=== PATIENT | male | born 1935 | race Caucasian/White ===

== ENCOUNTER 2020-05-09 10:52 | Inpatient (IN) | payer MEDICARE, OTHER, SELFPAY ==
[2020-05-09] MEDS ORDERED: Sodium Chloride 0.9% 10 ML Syringe FLUSH PRN (11:12)
[2020-05-09] MEDS ORDERED: Ondansetron 4 MG/2 ML SDV IVPUSH ONE (11:40)
[2020-05-09] MEDS ORDERED: Sodium Chloride 0.9% 1,000 ML IV STA (11:40)
--- NOTE | 2020-05-09 11:40 | EDM.PDOC ---
ED HPI GENERAL MEDICAL PROBLEM - General Chief Complaint: Gastrointestinal Problem Stated Complaint: [facility] Time Seen by Provider: 05/09/20 11:04 Source of Information: Reports: Patient, RN Notes Reviewed History Limitations: Reports: No Limitations - History of Present Illness INITIAL COMMENTS - FREE TEXT/NARRATIVE: Patient is an 84-year-old male presenting to the emergency department via [facility] with complaints of nausea and vomiting since Monday. He states that he is unable to keep his medications or liquids down. Denies abdominal pain other than when he is actively vomiting. He has had no diarrhea. His last bowel movement was on Monday and he states it was a normal bowel movement. He has been passing gas since that time but has had no further BMs. He does complain of shortness of breath but states that this has been fairly common for him for the last year. Denies any cough or chest pain. He is unsure if he is had a fever, but does state that he will intermittently feel hot. He lives alone and had no known sick contacts. On triage, patient was found to be hypoxic at 88 to 90% on room air. On he is currently on 2 L of oxygen by nasal cannula saturating 92-95%. Blood pressure is elevated at 190/109, respiratory rate 19, pulse 91, temperature 97.4. - Related Data Allergies Allergy/AdvReac Type Severity Reaction Status Date / Time atorvastatin [From Lipitor] Allergy Cannot Verified 05/09/20 11:10 Remember peanut Allergy Cannot Verified 05/09/20 11:10 Remember Penicillins Allergy Cannot Verified 05/09/20 11:10 Remember trazodone Allergy Cannot Verified 05/09/20 11:10 Remember Home Meds: Home Meds Amitriptyline [Elavil] 10 mg PO BEDTIME PRN 02/10/16 [History] Aspirin [Adult Low Dose Aspirin EC] 81 mg PO DAILY 02/10/16 [History] Cholecalciferol (Vitamin D3) [Vitamin D3] 2,000 units PO DAILY 02/10/16 [H istory] Fish Oil/[place]-3 Fatty Acids [Fish Oil 1,000 MG] 1,000 mg PO DAILY 02/10/16 [History] Gabapentin [Neurontin] 600 mg PO BID 02/10/16 [History] Losartan [Cozaar] 100 mg PO DAILY 02/10/16 [History] Polyethylene Glycol 3350 [MiraLAX] 17 gm PO DAILY packet 03/18/16 [Rx] Tamsulosin [Flomax] 0.4 mg PO DAILY #30 cap.er 03/18/16 [Rx] Albuterol [Take Home: Albuterol 18 GM, 1 INH Pack] 2 puff INH Q6HR PRN 05/09/20 [History] Ascorbic Acid [Vitamin C] 1,000 mg PO DAILY 05/09/20 [History] Aspirin [Aspirin EC] 81 mg PO DAILY 05/09/20 [History] Budesonide/Formoterol [Symbicort 160-4.5 MCG] 2 puff INH Q12HR 05/09/20 [History] Cetirizine HCl [Allergy Relief] 10 mg PO DAILY 05/09/20 [History] Gabapentin [Neurontin] 300 mg PO WITHLUNCH 05/09/20 [History] Ibuprofen 800 mg PO BID PRN 05/09/20 [History] Omeprazole 20 mg PO DAILY 05/09/20 [History] Verapamil [Verapamil ER] 120 mg PO DAILY 05/09/20 [History] bisacodyL [Bisacodyl] 10 mg PO BEDTIME PRN 05/09/20 [History] carvediloL [Carvedilol] 6.25 mg PO BID 05/09/20 [History] terbinafine HCL [Athlete's Foot] 1 applic TP BID 05/09/20 [History] Past Medical History HEENT History: Reports: Cataract Cardiovascular History: Reports: CAD, Heart Murmur, High Cholesterol, Hypertension, SOB on Exertion Other Cardiovascular History: mild Mitral steonosis/regurg. / moderate LA dilation / Increased PA pressure Respiratory History: Reports: SOB Other Respiratory History: Moderate Snoring Gastrointestinal History: Reports: Diverticulosis, GERD, Hiatal Hernia Genitourinary History: Reports: None Musculoskeletal History: Reports: Arthritis, Back Pain, Chronic, Other (See Below) Other Musculoskeletal History: weakness Neurological History: Reports: None Psychiatric History: Reports: None Endocrine/Metabolic History: Reports: Diabetes, Type II Hematologic History: Reports: Anemia, Other (See Below) Other Hematologic History: microcytic anemia Oncologic (Cancer) History: Reports: Other (See Below) Other Oncologic History: Patient reports hx of skin cancer. Other Dermatologic History: patient states Shingles hx. - Infectious Disease History Infectious Disease History: Reports: Chicken Pox, Measles, Mumps, Shingles - Past Surgical History Head Surgeries/Procedures: Reports: None HEENT Surgical History: Reports: Cataract Surgery Cardiovascular Surgical History: Reports: None Respiratory Surgical History: Reports: None GI Surgical History: Reports: Colonoscopy, Hernia, Inguinal, Hernia Repair/Other Male Surgical History: Reports: None Musculoskeletal Surgical History: Reports: None Other Musculoskeletal Surgeries/Procedures:: Neck surgery - pinched nerve release. Oncologic Surgical History: Reports: Other (See Below) Other Oncologic Surgeries/Procedures: Skin biopsy ([place]) Dermatological Surgical History: Reports: Skin Biopsy Social & Family History - Family History Family Medical History: No Pertinent Family History HEENT: Reports: Cataract Cardiac: Reports: None Respiratory: Reports: None GI: Reports: Chronic Constipation : Reports: None OBGYN: Reports: None Musculoskeletal: Reports: Arthritis Neurological: Reports: None Psychiatric: Reports: None Endocrine/Metabolic: Reports: Diabetes, Type I Hematologic: Reports: None Immunologic: Reports: None Dermatologic: Reports: None Oncologic: Reports: None - Tobacco Use Tobacco Use Status *Q: Never Tobacco User - Caffeine Use Caffeine Use: Reports: Coffee Other Caffeine Use: couple cups in the morning - Recreational Drug Use Recreational Drug Use: No - Living Situation & Occupation Living situation: Reports: Single Occupation: Retired ED ROS GENERAL - Review of Systems Review Of Systems: See Below Constitutional: Reports: Fever (Subjective), Weakness, Decreased Appetite HEENT: Reports: No Symptoms Respiratory: Reports: Shortness of Breath. Denies: Wheezing, Cough Cardiovascular: Reports: Dyspnea on Exertion. Denies: Chest Pain, Syncope Endocrine: Reports: No Symptoms GI/Abdominal: Reports: Nausea, Vomiting. Denies: Abdominal Pain, Diarrhea : Reports: No Symptoms ED EXAM, GI/ABD - Physical Exam Exam: See Below Exam Limited By: No Limitations General Appearance: Alert, WD/WN, No Apparent Distress Respiratory/Chest: No Respiratory Distress, Lungs Clear, Normal Breath Sounds, No Accessory Muscle Use, Chest Non-Tender Cardiovascular: Normal Peripheral Pulses, Regular Rate, Rhythm, No Edema, No Gallop, No JVD, No Murmur, No Rub GI/Abdominal Exam: Normal Bowel Sounds, Soft, Non-Tender, No Organomegaly, No Distention, No Abnormal Bruit, No Mass, Pelvis Stable Neurological: Alert, Oriented, CN II-XII Intact, Normal Cognition, Normal Gait, Normal Reflexes, No Motor/Sensory Deficits Psychiatric: Normal Affect, Normal Mood Skin Exam: Warm, Dry, Intact, Normal Color, No Rash Course - Vital Signs Last Recorded V/S: Last Vital Signs Temp 97.9 F 05/10/20 11:57 Pulse 63 05/10/20 11:57 Resp 16 05/10/20 11:57 BP 159/82 H 05/10/20 11:57 Pulse Ox 91 L 05/10/20 11:57 - Orders/Labs/Meds Orders: Medication Orders Acetaminophen (Tylenol) 650 mg PO Q4H PRN PRN Reason: Pain (Mild 1-3)/fever Amitriptyline HCl (Elavil) 10 mg PO BEDTIME PRN PRN Reason: Insomnia Last Admin: 05/09/20 20:38 Dose: 10 mg Documented by: ABIODUN Bisacodyl (Dulcolax) 10 mg PO BEDTIME PRN PRN Reason: Constipation Last Admin: 05/09/20 20:41 Dose: 10 mg Documented by: ABIODUN Carvedilol (Coreg) 6.25 mg PO BIDMEALS [facility] Last Admin: 05/10/20 06:09 Dose: 6.25 mg Documented by: Admin: 05/09/20 20:39 Dose: 6.25 mg Documented by: ABIODUN Cholecalciferol (Vitamin D3) 50 mcg PO DAILY [facility] Last Admin: 05/10/20 08:48 Dose: 50 mcg Documented by: STANLEY Enoxaparin Sodium (Lovenox) 90 mg SUBCUT Q12H [facility] Last Admin: 05/10/20 06:08 Dose: 90 mg Documented by: ABIODUN Gabapentin (Neurontin) 600 mg PO BID [facility] Last Admin: 05/10/20 08:46 Dose: 600 mg Documented by: Admin: 05/09/20 20:40 Dose: 600 mg Documented by: ABIODUN Gabapentin (Neurontin) 300 mg PO WITHLUNCH [facility] Last Admin: 05/10/20 13:39 Dose: 300 mg Documented by: STANLEY Loratadine (Claritin) 10 mg PO DAILY [facility] Last Admin: 05/10/20 08:48 Dose: 10 mg Documented by: STANLEY Losartan Potassium (Cozaar) 100 mg PO DAILY [facility] Last Admin: 05/10/20 08:48 Dose: 100 mg Documented by: STANLEY Mometasone Furoate/Formoterol Fumar (Dulera 200-5 Mcg) 2 puff IH Q12HR [facility] Last Admin: 05/10/20 08:21 Dose: 2 puff Documented by: Admin: 05/09/20 23:25 Dose: Not Given Documented by: ABIODUN Ondansetron HCl (Zofran) 4 mg IV Q4H PRN PRN Reason: Nausea/Vomiting Pantoprazole Sodium (Protonix) 40 mg PO ACBREAKFAST [facility] Last Admin: 05/10/20 06:09 Dose: 40 mg Documented by: ABIODUN Polyethylene Glycol (Miralax) 17 gm PO DAILY [facility] Last Admin: 05/10/20 08:44 Dose: 17 gm Documented by: STANLEY Sodium Chloride (Saline Flush) 10 ml FLUSH ASDIRECTED PRN PRN Reason: Keep Vein Open Last Admin: 05/09/20 11:15 Dose: 10 ml Documented by: SUMIT Tamsulosin HCl (Flomax) 0.4 mg PO DAILY [facility] Last Admin: 05/10/20 08:47 Dose: 0.4 mg Documented by: STANLEY Verapamil HCl (Verelan) 120 mg PO DAILY [facility] Last Admin: 05/10/20 08:47 Dose: 120 mg Documented by: STANLEY Labs: Laboratory Tests 05/09/20 05/09/20 05/09/20 Range/Units 11:00 11:00 11:00 WBC 9.55 H (4.23-9.07) K/mm3 RBC 5.33 (4.63-6.08) M/mm3 Hgb 15.7 D (13.7-17.5) gm/dl Hct 47.4 (40.1-51.0) % MCV 88.9 D (79.0-92.2) fl MCH 29.5 (25.7-32.2) pg MCHC 33.1 (32.2-35.5) g/dl RDW Std Deviation 43.8 (35.1-43.9) fL Plt Count 290 (163-337) K/mm3 MPV 8.6 L (9.4-12.3) fl Neut % (Auto) 89.7 H (34.0-67.9) % Lymph % (Auto) 6.4 L (21.8-53.1) % [place] % (Auto) 3.6 L (5.3-12.2) % Eos % (Auto) 0 L (0.8-7.0) Baso % (Auto) 0.0 L (0.1-1.2) % Neut # (Auto) 8.57 H (1.78-5.38) K/mm3 Lymph # (Auto) 0.61 L (1.32-3.57) K/mm3 [place] # (Auto) 0.34 (0.30-0.82) K/mm3 Eos # (Auto) 0.00 L (0.04-0.54) K/mm3 Baso # (Auto) 0.00 L (0.01-0.08) K/mm3 Manual Slide Review Abnormal smear PT (9.7-12.0) SECONDS INR D-Dimer, Quantitative 1.40 H (0.19-0.50) mg/L Sodium 136 (136-145) mEq/L Potassium 4.5 (3.5-5.1) mEq/L Chloride 99 (98-107) mEq/L Carbon Dioxide 28 (21-32) mEq/L Anion Gap 13.5 (5-15) BUN 22 H (7-18) mg/dL Creatinine 1.2 (0.7-1.3) mg/dL Est Cr Clr Drug Dosing 45.82 mL/min Estimated GFR (MDRD) 58 (>60) mL/min BUN/Creatinine Ratio 18.3 H (14-18) Glucose 193 H (83-115) mg/dL Calcium 9.4 (8.5-10.1) mg/dL Magnesium (1.8-2.4) mg/dl Total Bilirubin 0.8 (0.2-1.0) mg/dL AST 17 (15-37) U/L ALT 21 (16-63) U/L Alkaline Phosphatase 164 H (46-116) U/L Troponin I < 0.017 (0.00-0.056) ng/mL C-Reactive Protein 0.3 (<1.0) mg/dL NT-Pro-B Natriuret Pep (0-450) pg/mL Total Protein 7.6 (6.4-8.2) g/dl Albumin 3.8 (3.4-5.0) g/dl Globulin 3.8 gm/dL Albumin/Globulin Ratio 1.0 (1-2) Lipase (73-393) U/L Urine Color (Yellow) Urine Appearance (Clear) Urine pH (5.0-8.0) Ur Specific [place] (1.005-1.030) Urine Protein (Negative) Urine Glucose (UA) (Negative) Urine Ketones (Negative) Urine Occult Blood (Negative) Urine Nitrite (Negative) Urine Bilirubin (Negative) Urine Urobilinogen (0.2-1.0) Ur Leukocyte Esterase (Negative) U Hyaline Cast (Auto) (0-5) /lpf Urine RBC (0-5) /hpf Urine WBC (0-5) /hpf Ur Squamous Epith Cells (0-5) /hpf Amorphous Sediment (NOT SEEN) /hpf Urine Bacteria (FEW) /hpf Urine Mucus (FEW) /hpf Influenza Type A RNA (NEGATIVE) Influenza Type B RNA (NEGATIVE) SARS-CoV-2 RNA (DRISS) (NEGATIVE) 05/09/20 05/09/20 05/09/20 Range/Units 11:00 11:00 11:00 WBC (4.23-9.07) K/mm3 RBC (4.63-6.08) M/mm3 Hgb (13.7-17.5) gm/dl Hct (40.1-51.0) % MCV (79.0-92.2) fl MCH (25.7-32.2) pg MCHC (32.2-35.5) g/dl RDW Std Deviation (35.1-43.9) fL Plt Count (163-337) K/mm3 MPV (9.4-12.3) fl Neut % (Auto) (34.0-67.9) % Lymph % (Auto) (21.8-53.1) % [place] % (Auto) (5.3-12.2) % Eos % (Auto) (0.8-7.0) Baso % (Auto) (0.1-1.2) % Neut # (Auto) (1.78-5.38) K/mm3 Lymph # (Auto) (1.32-3.57) K/mm3 [place] # (Auto) (0.30-0.82) K/mm3 Eos # (Auto) (0.04-0.54) K/mm3 Baso # (Auto) (0.01-0.08) K/mm3 Manual Slide Review PT 11.9 (9.7-12.0) SECONDS INR 1.11 D-Dimer, Quantitative (0.19-0.50) mg/L Sodium (136-145) mEq/L Potassium (3.5-5.1) mEq/L Chloride (98-107) mEq/L Carbon Dioxide (21-32) mEq/L Anion Gap (5-15) BUN (7-18) mg/dL Creatinine (0.7-1.3) mg/dL Est Cr Clr Drug Dosing mL/min Estimated GFR (MDRD) (>60) mL/min BUN/Creatinine Ratio (14-18) Glucose (83-115) mg/dL Calcium (8.5-10.1) mg/dL Magnesium 2.0 (1.8-2.4) mg/dl Total Bilirubin (0.2-1.0) mg/dL AST (15-37) U/L ALT (16-63) U/L Alkaline Phosphatase (46-116) U/L Troponin I (0.00-0.056) ng/mL C-Reactive Protein (<1.0) mg/dL NT-Pro-B Natriuret Pep 596 H (0-450) pg/mL Total Protein (6.4-8.2) g/dl Albumin (3.4-5.0) g/dl Globulin gm/dL Albumin/Globulin Ratio (1-2) Lipase 48 L (73-393) U/L Urine Color (Yellow) Urine Appearance (Clear) Urine pH (5.0-8.0) Ur Specific [place] (1.005-1.030) Urine Protein (Negative) Urine Glucose (UA) (Negative) Urine Ketones (Negative) Urine Occult Blood (Negative) Urine Nitrite (Negative) Urine Bilirubin (Negative) Urine Urobilinogen (0.2-1.0) Ur Leukocyte Esterase (Negative) U Hyaline Cast (Auto) (0-5) /lpf Urine RBC (0-5) /hpf Urine WBC (0-5) /hpf Ur Squamous Epith Cells (0-5) /hpf Amorphous Sediment (NOT SEEN) /hpf Urine Bacteria (FEW) /hpf Urine Mucus (FEW) /hpf Influenza Type A RNA (NEGATIVE) Influenza Type B RNA (NEGATIVE) SARS-CoV-2 RNA (DRISS) (NEGATIVE) 05/09/20 05/09/20 Range/Units 12:15 12:40 WBC (4.23-9.07) K/mm3 RBC (4.63-6.08) M/mm3 Hgb (13.7-17.5) gm/dl Hct (40.1-51.0) % MCV (79.0-92.2) fl MCH (25.7-32.2) pg MCHC (32.2-35.5) g/dl RDW Std Deviation (35.1-43.9) fL Plt Count (163-337) K/mm3 MPV (9.4-12.3) fl Neut % (Auto) (34.0-67.9) % Lymph % (Auto) (21.8-53.1) % [place] % (Auto) (5.3-12.2) % Eos % (Auto) (0.8-7.0) Baso % (Auto) (0.1-1.2) % Neut # (Auto) (1.78-5.38) K/mm3 Lymph # (Auto) (1.32-3.57) K/mm3 [place] # (Auto) (0.30-0.82) K/mm3 Eos # (Auto) (0.04-0.54) K/mm3 Baso # (Auto) (0.01-0.08) K/mm3 Manual Slide Review PT (9.7-12.0) SECONDS INR D-Dimer, Quantitative (0.19-0.50) mg/L Sodium (136-145) mEq/L Potassium (3.5-5.1) mEq/L Chloride (98-107) mEq/L Carbon Dioxide (21-32) mEq/L Anion Gap (5-15) BUN (7-18) mg/dL Creatinine (0.7-1.3) mg/dL Est Cr Clr Drug Dosing mL/min Estimated GFR (MDRD) (>60) mL/min BUN/Creatinine Ratio (14-18) Glucose (83-115) mg/dL Calcium (8.5-10.1) mg/dL Magnesium (1.8-2.4) mg/dl Total Bilirubin (0.2-1.0) mg/dL AST (15-37) U/L ALT (16-63) U/L Alkaline Phosphatase (46-116) U/L Troponin I (0.00-0.056) ng/mL C-Reactive Protein (<1.0) mg/dL NT-Pro-B Natriuret Pep (0-450) pg/mL Total Protein (6.4-8.2) g/dl Albumin (3.4-5.0) g/dl Globulin gm/dL Albumin/Globulin Ratio (1-2) Lipase (73-393) U/L Urine Color Yellow (Yellow) Urine Appearance Clear (Clear) Urine pH 7.0 (5.0-8.0) Ur Specific [place] 1.025 (1.005-1.030) Urine Protein Trace H (Negative) Urine Glucose (UA) Negative (Negative) Urine Ketones 1+ H (Negative) Urine Occult Blood Negative (Negative) Urine Nitrite Negative (Negative) Urine Bilirubin Negative (Negative) Urine Urobilinogen 1.0 (0.2-1.0) Ur Leukocyte Esterase Negative (Negative) U Hyaline Cast (Auto) 0-5 (0-5) /lpf Urine RBC 0-5 (0-5) /hpf Urine WBC 0-5 (0-5) /hpf Ur Squamous Epith Cells 0-5 (0-5) /hpf Amorphous Sediment Few H (NOT SEEN) /hpf Urine Bacteria Few (FEW) /hpf Urine Mucus Rare (FEW) /hpf Influenza Type A RNA Negative (NEGATIVE) Influenza Type B RNA Negative (NEGATIVE) SARS-CoV-2 RNA (DRISS) Negative (NEGATIVE) Meds: Medications Generic Name Dose Route Start Last Admin Trade Name Freq PRN Reason Stop Dose Admin Acetaminophen 650 mg 05/09/20 19:50 Tylenol PO Q4H PRN Pain (Mild 1-3)/fever Amitriptyline HCl 10 mg 05/09/20 19:54 05/09/20 20:38 Elavil PO 10 mg BEDTIME PRN Administration Insomnia Bisacodyl 10 mg 05/09/20 19:54 05/09/20 20:41 Dulcolax PO 10 mg BEDTIME PRN Administration Constipation Carvedilol 6.25 mg 05/09/20 21:00 05/10/20 06:09 Coreg PO 6.25 mg BIDMEALS [facility] Administration Cholecalciferol 50 mcg 05/10/20 09:00 05/10/20 08:48 Vitamin D3 PO 50 mcg DAILY [facility] Administration Enoxaparin Sodium 90 mg 05/10/20 06:00 05/10/20 06:08 Lovenox SUBCUT 90 mg Q12H [facility] Administration Gabapentin 600 mg 05/09/20 21:00 05/10/20 08:46 Neurontin PO 600 mg BID [facility] Administration Gabapentin 300 mg 05/10/20 11:00 05/10/20 13:39 Neurontin PO 300 mg WITHLUNCH [facility] Administration Loratadine 10 mg 05/10/20 09:00 05/10/20 08:48 Claritin PO 10 mg DAILY [facility] Administration Losartan Potassium 100 mg 05/10/20 09:00 05/10/20 08:48 Cozaar PO 100 mg DAILY [facility] Administration Mometasone Furoate/Formoterol Fumar 2 puff 05/09/20 21:00 05/10/20 08:21 Dulera 200-5 Mcg IH 2 puff Q12HR [facility] Administration Ondansetron HCl 4 mg 05/09/20 19:50 Zofran IV Q4H PRN Nausea/Vomiting Pantoprazole Sodium 40 mg 05/10/20 06:00 05/10/20 06:09 Protonix PO 40 mg ACBREAKFAST [facility] Administration Polyethylene Glycol 17 gm 05/10/20 09:00 05/10/20 08:44 Miralax PO 17 gm DAILY [facility] Administration Sodium Chloride 10 ml 05/09/20 11:12 05/09/20 11:15 Saline Flush FLUSH 10 ml ASDIRECTED PRN Administration Keep Vein Open Tamsulosin HCl 0.4 mg 05/10/20 09:00 05/10/20 08:47 Flomax PO 0.4 mg DAILY [facility] Administration Verapamil HCl 120 mg 05/10/20 09:00 05/10/20 08:47 Verelan PO 120 mg DAILY [facility] Administration Discontinued Medications Generic Name Dose Route Start Last Admin Trade Name Freq PRN Reason Stop Dose Admin Enoxaparin Sodium 80 mg 05/09/20 14:59 05/09/20 15:12 Lovenox SUBCUT 05/09/20 15:00 80 mg ONETIME ONE Administration Sodium Chloride 1,000 mls @ 100 mls/hr 05/09/20 11:40 05/09/20 13:26 Normal Saline IV 05/09/20 21:39 100 mls/hr NOW STA Infusion Sodium Chloride 100 mls @ 60 mls/hr 05/09/20 12:15 05/09/20 12:43 Normal Saline IV 60 mls/hr ASDIRECTED [facility] Administration Iopamidol 100 ml 05/09/20 12:14 05/09/20 12:43 Isovue-370 (76%) IVPUSH 05/09/20 12:15 100 ml ONETIME ONE Administration Metoclopramide HCl 7.5 mg 05/09/20 12:26 05/09/20 12:37 Reglan IVPUSH 05/09/20 12:27 7.5 mg ONETIME ONE Administration Ondansetron HCl 4 mg 05/09/20 11:40 05/09/20 11:47 Zofran IVPUSH 05/09/20 11:41 4 mg ONETIME ONE Administration Sodium Chloride 10 ml 05/09/20 12:14 05/09/20 12:43 Saline Flush FLUSH 05/09/20 12:15 10 ml ONETIME ONE Administration - Re-Assessments/Exams Free Text/Narrative Re-Assessment/Exam: Patient is an 84 year old male presenting to the ER with c/o nausea and vomiting since Monday. He has been unable to keep liquids or his medications down. He feels like he has had intermittent fevers but has not checked a temp at home. He was found to be mildly hypoxia on triage. He is currently on 2L/NC saturating in the low 90s. He denies cough, but states that he has been SOB. Denies abdominal pain. Exam was grossly unremarkable. I have ordered blood work, EKG, chest xray, urinalysis, and COVID/influenza test. I will start IV fluids of NS at 150 ml/hr and give Zofran 4 mg IV for nausea. 05/09/20 1200 Hematology was significant for WBC minimally elevated at 9.55, D-dimer elevated at 1.4, BUN 22, BNP 596, CRP is normal at 0.3, troponin is undetectable. Urinalysis and Covid and influenza testing are pending. Given that patient is hypoxic and his D-dimer is notably elevated. Have ordered a CT angiogram of the chest. 05/09/20 12:30 Patient continues to complain of nausea. Have ordered Reglan 7.5 mg IV. 05/09/20 14:16 CT angiogram of the chest showed acute nonocclusive pulmonary embolus with in the periphery of the upper lobe of the left main pulmonary artery. There is no evidence of right-sided heart strain. Chronic changes within the lung parenchyma with patchy groundglass most likely representing mild pulmonary edema/CHF. Moderate grade cardiomegaly and coronary atherosclerosis with mild calcifications of the aortic valve leaflets. Patient's nausea has improved, however he does still feel slightly nauseous. Oxygen has been 92 to 94% on 2 L by nasal cannula. Hypoxia is likely related to the pulmonary emboli, however nausea and vomiting is generally not involved. I have ordered an abdomen x-ray flat and upright. 05/09/20 15:00 Abdomen flat and upright x-ray reviewed by myself and Dr. Marion with no acute abnormalities visualized. Called and spoke with Dr. Rutherford, hospitalist. He is excepted the patient for admission. Requested Lovenox 1 mg/kg to be administered. Departure - Departure Time of Disposition: 15:00 Disposition: Admitted As Inpatient 66 Condition: Good Clinical Impression: Vomiting, Hypoxia Pulmonary embolism Qualifiers: Pulmonary embolism type: unspecified Chronicity: acute Acute cor pulmonale presence: without acute cor pulmonale Qualified Code(s): I26.99 - Other pulmonary embolism without acute cor pulmonale - Discharge Information Sepsis Event Note (ED) - Evaluation Sepsis Screening Result: No Definite Risk
[2020-05-09] MEDS ORDERED: Sodium Chloride 0.9% 10 ML Syringe FLUSH ONE (12:14)
[2020-05-09] MEDS ORDERED: Iopamidol 755 Mg/ML 100 ML Bottle IVPUSH ONE (12:14)
[2020-05-09] MEDS ORDERED: Sodium Chloride 0.9% 100 ML IV SCH (12:15)
[2020-05-09] MEDS ORDERED: Metoclopramide 10 MG/2 ML SDV IVPUSH ONE (12:26)
[2020-05-09 13:54] LABS: CORONAVIRUS COVID-19 NAA NEGATIVE (NEGATIVE)
[2020-05-09] MEDS ORDERED: Enoxaparin 80 MG/0.8 ML Syringe SUBCUT ONE (14:59)
--- NOTE | 2020-05-09 16:37 | PCM.HP.2 ---
H&P History of Present Illness - General Date of Service: 05/09/20 Admit Problem/Dx: Admission Diagnosis/Problem Admission Diagnosis/Problem Pulmonary embolism - History of Present Illness Initial Comments - Free Text/Narative: 84-year-old male with history of COPD, hypertension, BPH, chronic back pain, presents to the emergency department with worsening nausea and vomiting. Patient states he has been having difficulty with nausea and vomiting for several months but over the last 3 days has been unable to keep anything down. Patient's last bowel movement was 3 days ago. Today he was unable to keep his medications down so he came to the emergency department. Patient lives at home and he has become more fatigued. He also states he has chronic shortness of breath. No known exposures to COVID-19. Oxygen saturations were 88 to 90% and he was placed on 2 L of O2 via nasal cannula to keep his oxygen saturations between 90 to 95%. His initial vitals showed a blood pressure of 190/109 with heart rate of 91, respiratory rate of 19 and temperature 97.4. In the emergent department he was found to have a D-dimer of 1.4. CTA of the chest showed acute nonocclusive pulmonary embolus within the periphery of the left lobe of the left main pulmonary artery. There is no evidence of right-sided heart strain. Chronic changes within the lung parenchyma with patchy groundglass most likely representing mild pulmonary edema/CHF. Moderate grade cardiomegaly and coronary arthrosclerosis with mild calcifications on the aortic valve leaflets. Patient did require both Zofran and Reglan to improve his nausea. Patient denies any recent immobilization, travel, cancer (he did have colon cancer 5 years ago). An abdominal flat and upright x-ray was negative for any acute abnormalities. - Related Data Allergies/Adverse Reactions: Allergies Allergy/AdvReac Type Severity Reaction Status Date / Time atorvastatin [From Lipitor] Allergy Cannot Verified 05/09/20 11:10 Remember peanut Allergy Cannot Verified 05/09/20 11:10 Remember Penicillins Allergy Cannot Verified 05/09/20 11:10 Remember trazodone Allergy Cannot Verified 05/09/20 11:10 Remember Home Medications: Home Meds Amitriptyline [Elavil] 10 mg PO BEDTIME PRN 02/10/16 [History] Aspirin [Adult Low Dose Aspirin EC] 81 mg PO DAILY 02/10/16 [History] Cholecalciferol (Vitamin D3) [Vitamin D3] 2,000 units PO DAILY 02/10/16 [History] Fish Oil/Harper-3 Fatty Acids [Fish Oil 1,000 MG] 1,000 mg PO DAILY 02/10/16 [History] Gabapentin [Neurontin] 600 mg PO BID 02/10/16 [History] Losartan [Cozaar] 100 mg PO DAILY 02/10/16 [History] Polyethylene Glycol 3350 [MiraLAX] 17 gm PO DAILY packet 03/18/16 [Rx] Tamsulosin [Flomax] 0.4 mg PO DAILY #30 cap.er 03/18/16 [Rx] Albuterol [Take Home: Albuterol 18 GM, 1 INH Pack] 2 puff INH Q6HR PRN 05/09/20 [History] Ascorbic Acid [Vitamin C] 1,000 mg PO DAILY 05/09/20 [History] Aspirin [Aspirin EC] 81 mg PO DAILY 05/09/20 [History] Budesonide/Formoterol [Symbicort 160-4.5 MCG] 2 puff INH Q12HR 05/09/20 [History] Cetirizine HCl [Allergy Relief] 10 mg PO DAILY 05/09/20 [History] Gabapentin [Neurontin] 300 mg PO WITHLUNCH 05/09/20 [History] Ibuprofen 800 mg PO BID PRN 05/09/20 [History] Omeprazole 20 mg PO DAILY 05/09/20 [History] Verapamil [Verapamil ER] 120 mg PO DAILY 05/09/20 [History] bisacodyL [Bisacodyl] 10 mg PO BEDTIME PRN 05/09/20 [History] carvediloL [Carvedilol] 6.25 mg PO BID 05/09/20 [History] terbinafine HCL [Athlete's Foot] 1 applic TP BID 05/09/20 [History] Past Medical History HEENT History: Reports: Cataract Cardiovascular History: Reports: CAD, Heart Murmur, High Cholesterol, Hypertension, SOB on Exertion Other Cardiovascular History: mild Mitral steonosis/regurg. / moderate LA dilation / Increased PA pressure Respiratory History: Reports: SOB Other Respiratory History: Moderate Snoring Gastrointestinal History: Reports: Diverticulosis, GERD, Hiatal Hernia Genitourinary History: Reports: None Musculoskeletal History: Reports: Arthritis, Back Pain, Chronic, Other (See Below) Other Musculoskeletal History: weakness Neurological History: Reports: None Psychiatric History: Reports: None Endocrine/Metabolic History: Reports: Diabetes, Type II Hematologic History: Reports: Anemia, Other (See Below) Other Hematologic History: microcytic anemia Oncologic (Cancer) History: Reports: Other (See Below) Other Oncologic History: Patient reports hx of skin cancer. Other Dermatologic History: patient states Shingles hx. - Infectious Disease History Infectious Disease History: Reports: Chicken Pox, Measles, Mumps, Shingles - Past Surgical History Head Surgeries/Procedures: Reports: None HEENT Surgical History: Reports: Cataract Surgery Cardiovascular Surgical History: Reports: None Respiratory Surgical History: Reports: None GI Surgical History: Reports: Colonoscopy, Hernia, Inguinal, Hernia Repair/Other Male Surgical History: Reports: None Musculoskeletal Surgical History: Reports: None Other Musculoskeletal Surgeries/Procedures:: Neck surgery - pinched nerve release. Oncologic Surgical History: Reports: Other (See Below) Other Oncologic Surgeries/Procedures: Skin biopsy ([facility]) Dermatological Surgical History: Reports: Skin Biopsy Social & Family History - Family History Family Medical History: No Pertinent Family History HEENT: Reports: Cataract Cardiac: Reports: None Respiratory: Reports: None GI: Reports: Chronic Constipation : Reports: None OBGYN: Reports: None Musculoskeletal: Reports: Arthritis Neurological: Reports: None Psychiatric: Reports: None Endocrine/Metabolic: Reports: Diabetes, Type I Hematologic: Reports: None Immunologic: Reports: None Dermatologic: Reports: None Oncologic: Reports: None - Tobacco Use Tobacco Use Status *Q: Former Tobacco User Years of Tobacco use: 3 Packs/Tins Daily: 1 Used Tobacco, but Quit: Yes Month/Year Tobacco Last Used: 60 years ago Tobacco Use Comment: smokeless tobacco for quite a few years after quitting smoking. - Caffeine Use Caffeine Use: Reports: Coffee Other Caffeine Use: couple cups in the morning - Recreational Drug Use Recreational Drug Use: No - Living Situation & Occupation Living situation: Reports: Single Occupation: Retired H&P Review of Systems - Review of Systems: Review Of Systems: Comprehensive ROS is negative, except as noted in HPI. Exam - Exam Exam: See Below - Vital Signs Vital Signs: Last Vital Signs Temp 98.2 F 05/09/20 16:21 Pulse 93 05/09/20 16:21 Resp 16 05/09/20 16:21 BP 126/79 05/09/20 16:21 Pulse Ox 94 L 05/09/20 16:21 Weight: 198 lb 8 oz - Exam Quality Assessment: Supplemental Oxygen General: Alert, Oriented, 4 HEENT: Conjunctiva Clear, Mucosa Moist & [place], Normal Nasal Septum. No: Hearing Intact (Hard of hearing) Neck: Supple, Trachea Midline, 2 Lungs: Decreased Breath Sounds, Rales (Minimal bibasilar) Cardiovascular: Regular Rate, Regular Rhythm, Systolic Murmur (Best heard fifth intercostal space) GI/Abdominal Exam: Normal Bowel Sounds, Soft, Non-Tender, No Organomegaly, No Distention, No Abnormal Bruit, No Mass Extremities: Normal Inspection, Normal Range of Motion, Non-Tender, Normal Capillary Refill, Pedal Edema (Stent trace edema of the lower extremities up to knee-high) Peripheral Pulses: 1+: Posterior Tibial (L), Posterior Tibial (R), Dorsalis Pedis (L), Dorsalis Pedis (R) Skin: Warm, Dry, Intact Neuro Extensive - Mental Status: Alert, Oriented x3, Normal Mood/Affect, Normal Cognition, Memory Intact Psychiatric: Alert, Normal Affect, Normal Mood - Patient Data Lab Results Last 24 hrs: Laboratory Results - last 24 hr 05/09/20 05/09/20 05/09/20 Range/Units 11:00 11:00 11:00 WBC 9.55 H (4.23-9.07) K/mm3 RBC 5.33 (4.63-6.08) M/mm3 Hgb 15.7 D (13.7-17.5) gm/dl Hct 47.4 (40.1-51.0) % MCV 88.9 D (79.0-92.2) fl MCH 29.5 (25.7-32.2) pg MCHC 33.1 (32.2-35.5) g/dl RDW Std Deviation 43.8 (35.1-43.9) fL Plt Count 290 (163-337) K/mm3 MPV 8.6 L (9.4-12.3) fl Neut % (Auto) 89.7 H (34.0-67.9) % Lymph % (Auto) 6.4 L (21.8-53.1) % Wheeler % (Auto) 3.6 L (5.3-12.2) % Eos % (Auto) 0 L (0.8-7.0) Baso % (Auto) 0.0 L (0.1-1.2) % Neut # (Auto) 8.57 H (1.78-5.38) K/mm3 Lymph # (Auto) 0.61 L (1.32-3.57) K/mm3 Wheeler # (Auto) 0.34 (0.30-0.82) K/mm3 Eos # (Auto) 0.00 L (0.04-0.54) K/mm3 Baso # (Auto) 0.00 L (0.01-0.08) K/mm3 Manual Slide Review Abnormal smear PT (9.7-12.0) SECONDS INR D-Dimer, Quantitative 1.40 H (0.19-0.50) mg/L Sodium 136 (136-145) mEq/L Potassium 4.5 (3.5-5.1) mEq/L Chloride 99 (98-107) mEq/L Carbon Dioxide 28 (21-32) mEq/L Anion Gap 13.5 (5-15) BUN 22 H (7-18) mg/dL Creatinine 1.2 (0.7-1.3) mg/dL Est Cr Clr Drug Dosing 45.82 mL/min Estimated GFR (MDRD) 58 (>60) mL/min BUN/Creatinine Ratio 18.3 H (14-18) Glucose 193 H (83-115) mg/dL Calcium 9.4 (8.5-10.1) mg/dL Magnesium (1.8-2.4) mg/dl Total Bilirubin 0.8 (0.2-1.0) mg/dL AST 17 (15-37) U/L ALT 21 (16-63) U/L Alkaline Phosphatase 164 H (46-116) U/L Troponin I < 0.017 (0.00-0.056) ng/mL C-Reactive Protein 0.3 (<1.0) mg/dL NT-Pro-B Natriuret Pep (0-450) pg/mL Total Protein 7.6 (6.4-8.2) g/dl Albumin 3.8 (3.4-5.0) g/dl Globulin 3.8 gm/dL Albumin/Globulin Ratio 1.0 (1-2) Lipase (73-393) U/L Urine Color (Yellow) Urine Appearance (Clear) Urine pH (5.0-8.0) Ur Specific Lutz (1.005-1.030) Urine Protein (Negative) Urine Glucose (UA) (Negative) Urine Ketones (Negative) Urine Occult Blood (Negative) Urine Nitrite (Negative) Urine Bilirubin (Negative) Urine Urobilinogen (0.2-1.0) Ur Leukocyte Esterase (Negative) U Hyaline Cast (Auto) (0-5) /lpf Urine RBC (0-5) /hpf Urine WBC (0-5) /hpf Ur Squamous Epith Cells (0-5) /hpf Amorphous Sediment (NOT SEEN) /hpf Urine Bacteria (FEW) /hpf Urine Mucus (FEW) /hpf Influenza Type A RNA (NEGATIVE) Influenza Type B RNA (NEGATIVE) SARS-CoV-2 RNA (DRISS) (NEGATIVE) 05/09/20 05/09/20 05/09/20 Range/Units 11:00 11:00 11:00 WBC (4.23-9.07) K/mm3 RBC (4.63-6.08) M/mm3 Hgb (13.7-17.5) gm/dl Hct (40.1-51.0) % MCV (79.0-92.2) fl MCH (25.7-32.2) pg MCHC (32.2-35.5) g/dl RDW Std Deviation (35.1-43.9) fL Plt Count (163-337) K/mm3 MPV (9.4-12.3) fl Neut % (Auto) (34.0-67.9) % Lymph % (Auto) (21.8-53.1) % Wheeler % (Auto) (5.3-12.2) % Eos % (Auto) (0.8-7.0) Baso % (Auto) (0.1-1.2) % Neut # (Auto) (1.78-5.38) K/mm3 Lymph # (Auto) (1.32-3.57) K/mm3 Wheeler # (Auto) (0.30-0.82) K/mm3 Eos # (Auto) (0.04-0.54) K/mm3 Baso # (Auto) (0.01-0.08) K/mm3 Manual Slide Review PT 11.9 (9.7-12.0) SECONDS INR 1.11 D-Dimer, Quantitative (0.19-0.50) mg/L Sodium (136-145) mEq/L Potassium (3.5-5.1) mEq/L Chloride (98-107) mEq/L Carbon Dioxide (21-32) mEq/L Anion Gap (5-15) BUN (7-18) mg/dL Creatinine (0.7-1.3) mg/dL Est Cr Clr Drug Dosing mL/min Estimated GFR (MDRD) (>60) mL/min BUN/Creatinine Ratio (14-18) Glucose (83-115) mg/dL Calcium (8.5-10.1) mg/dL Magnesium 2.0 (1.8-2.4) mg/dl Total Bilirubin (0.2-1.0) mg/dL AST (15-37) U/L ALT (16-63) U/L Alkaline Phosphatase (46-116) U/L Troponin I (0.00-0.056) ng/mL C-Reactive Protein (<1.0) mg/dL NT-Pro-B Natriuret Pep 596 H (0-450) pg/mL Total Protein (6.4-8.2) g/dl Albumin (3.4-5.0) g/dl Globulin gm/dL Albumin/Globulin Ratio (1-2) Lipase 48 L (73-393) U/L Urine Color (Yellow) Urine Appearance (Clear) Urine pH (5.0-8.0) Ur Specific Lutz (1.005-1.030) Urine Protein (Negative) Urine Glucose (UA) (Negative) Urine Ketones (Negative) Urine Occult Blood (Negative) Urine Nitrite (Negative) Urine Bilirubin (Negative) Urine Urobilinogen (0.2-1.0) Ur Leukocyte Esterase (Negative) U Hyaline Cast (Auto) (0-5) /lpf Urine RBC (0-5) /hpf Urine WBC (0-5) /hpf Ur Squamous Epith Cells (0-5) /hpf Amorphous Sediment (NOT SEEN) /hpf Urine Bacteria (FEW) /hpf Urine Mucus (FEW) /hpf Influenza Type A RNA (NEGATIVE) Influenza Type B RNA (NEGATIVE) SARS-CoV-2 RNA (DRISS) (NEGATIVE) 05/09/20 05/09/20 Range/Units 12:15 12:40 WBC (4.23-9.07) K/mm3 RBC (4.63-6.08) M/mm3 Hgb (13.7-17.5) gm/dl Hct (40.1-51.0) % MCV (79.0-92.2) fl MCH (25.7-32.2) pg MCHC (32.2-35.5) g/dl RDW Std Deviation (35.1-43.9) fL Plt Count (163-337) K/mm3 MPV (9.4-12.3) fl Neut % (Auto) (34.0-67.9) % Lymph % (Auto) (21.8-53.1) % Wheeler % (Auto) (5.3-12.2) % Eos % (Auto) (0.8-7.0) Baso % (Auto) (0.1-1.2) % Neut # (Auto) (1.78-5.38) K/mm3 Lymph # (Auto) (1.32-3.57) K/mm3 Wheeler # (Auto) (0.30-0.82) K/mm3 Eos # (Auto) (0.04-0.54) K/mm3 Baso # (Auto) (0.01-0.08) K/mm3 Manual Slide Review PT (9.7-12.0) SECONDS INR D-Dimer, Quantitative (0.19-0.50) mg/L Sodium (136-145) mEq/L Potassium (3.5-5.1) mEq/L Chloride (98-107) mEq/L Carbon Dioxide (21-32) mEq/L Anion Gap (5-15) BUN (7-18) mg/dL Creatinine (0.7-1.3) mg/dL Est Cr Clr Drug Dosing mL/min Estimated GFR (MDRD) (>60) mL/min BUN/Creatinine Ratio (14-18) Glucose (83-115) mg/dL Calcium (8.5-10.1) mg/dL Magnesium (1.8-2.4) mg/dl Total Bilirubin (0.2-1.0) mg/dL AST (15-37) U/L ALT (16-63) U/L Alkaline Phosphatase (46-116) U/L Troponin I (0.00-0.056) ng/mL C-Reactive Protein (<1.0) mg/dL NT-Pro-B Natriuret Pep (0-450) pg/mL Total Protein (6.4-8.2) g/dl Albumin (3.4-5.0) g/dl Globulin gm/dL Albumin/Globulin Ratio (1-2) Lipase (73-393) U/L Urine Color Yellow (Yellow) Urine Appearance Clear (Clear) Urine pH 7.0 (5.0-8.0) Ur Specific Lutz 1.025 (1.005-1.030) Urine Protein Trace H (Negative) Urine Glucose (UA) Negative (Negative) Urine Ketones 1+ H (Negative) Urine Occult Blood Negative (Negative) Urine Nitrite Negative (Negative) Urine Bilirubin Negative (Negative) Urine Urobilinogen 1.0 (0.2-1.0) Ur Leukocyte Esterase Negative (Negative) U Hyaline Cast (Auto) 0-5 (0-5) /lpf Urine RBC 0-5 (0-5) /hpf Urine WBC 0-5 (0-5) /hpf Ur Squamous Epith Cells 0-5 (0-5) /hpf Amorphous Sediment Few H (NOT SEEN) /hpf Urine Bacteria Few (FEW) /hpf Urine Mucus Rare (FEW) /hpf Influenza Type A RNA Negative (NEGATIVE) Influenza Type B RNA Negative (NEGATIVE) SARS-CoV-2 RNA (DRISS) Negative (NEGATIVE) Result Diagrams: 05/10/20 06:15 05/10/20 06:15 Sepsis Event Note - Evaluation Sepsis Screening Result: No Definite Risk - Focused Exam Vital Signs: Vital Signs Temp Temp Pulse Pulse Resp BP BP 05/09/20 16:21 98.2 F 93 16 126/79 05/09/20 11:01 97.4 F 91 19 190/109 H Pulse Ox 05/09/20 16:21 94 L 05/09/20 11:01 91 L - Problem List (1) Hypoxia SNOMED Code(s): 298816098 ICD Code: R09.02 - HYPOXEMIA Status: Acute Current Visit: Yes (2) Pulmonary embolism SNOMED Code(s): 89746933 ICD Code: I26.99 - OTHER PULMONARY EMBOLISM WITHOUT ACUTE COR PULMONALE St atus: Acute Current Visit: Yes Qualifiers: Pulmonary embolism type: unspecified Chronicity: acute Acute cor pulmonale presence: without acute cor pulmonale Qualified Code(s): I26.99 - Other pulmonary embolism without acute cor pulmonale (3) Vomiting SNOMED Code(s): 539739120 ICD Code: R11.10 - VOMITING, UNSPECIFIED Status: Acute Current Visit: Yes (4) Acute kidney failure SNOMED Code(s): 31735431 ICD Code: N17.9 - ACUTE KIDNEY FAILURE, UNSPECIFIED Status: Acute Current Visit: Yes Problem List Initiated/Reviewed/Updated: Yes Orders Last 24hrs: Active Orders 24 hr Category Date Time Status Admission Status [Patient Status] [ADT] Routine ADT 05/09/20 15:04 Active Abdomen 2V AP Flat Upright [CR] Stat Exams 05/09/20 14:08 Taken Chest 1V Frontal [CR] Stat Exams 05/09/20 11:13 Taken Chest PE [Ang Chest] [CT] Stat Exams 05/09/20 11:55 Taken Sodium Chloride 0.9% [Normal Saline] 1,000 ml Med 05/09/20 11:40 Active IV NOW Sodium Chloride 0.9% [Normal Saline] 100 ml Med 05/09/20 12:15 Active IV ASDIRECTED Sodium Chloride 0.9% [Saline Flush] Med 05/09/20 11:12 Active 10 ml FLUSH ASDIRECTED PRN Peripheral IV Insertion Adult [OM.PC] Stat Oth 05/09/20 11:12 Ordered Medication Orders Sodium Chloride (Normal Saline) 1,000 mls @ 100 mls/hr IV NOW STA Stop: 05/09/20 21:39 Last Infusion: 05/09/20 13:26 Dose: 100 mls/hr Documented by: Admin: 05/09/20 11:47 Dose: 150 mls/hr Documented by: REGGIE Sodium Chloride (Normal Saline) 100 mls @ 60 mls/hr IV ASDIRECTED LAWRENCE Last Admin: 05/09/20 12:43 Dose: 60 mls/hr Documented by: CATRACHITA Sodium Chloride (Saline Flush) 10 ml FLUSH ASDIRECTED PRN PRN Reason: Keep Vein Open Last Admin: 05/09/20 11:15 Dose: 10 ml Documented by: SUMIT Assessment/Plan Comment:: Assessment 84 yo male with hx of CAD, valvular disease, chronic SOB presents to the ED with N/V. He is found to have an elevated d-dimer and PE. He has no history of recent travel, carcinoma, restricted movement, or other instigating factors. Pulmonary embolism with no right ventricular strain Hypoxemia Chronic shortness of breath on exertion Nausea and vomitingresolved Coronary artery disease No history of CHF Hypertension * CT angiogram of the chest showed acute nonocclusive pulmonary embolus within the periphery of the upper lobe of the left main pulmonary artery. * Chronic changes within the lung parenchyma with patchy groundglass most likely representing mild pulmonary edema/CHF. * Moderate grade cardiomegaly and coronary atherosclerosis with mild calcifications of the aortic valve leaflets. * Requiring 2 L nasal cannula supplementation * On presentation blood pressure was 190/109 Plan * Patient is having difficulty with nausea and vomiting so elected to use Lovenox 1 mg/kg every 12 hours initially for anticoagulation. * When he is able to take orally will need to discuss with local [place] clinic which [facility] available [facility] They will then get him emergency authorization for a local pharmacy. * Wean patient off of O2 if possible. * Anticoagulation work-up not performed secondary to age. * CODE STATUS DNR/DNI * VTE prophylaxis with Lovenox * Length of stay likely 2 to 3 days. He may be able to go home Monday if weaned off oxygen and able to get preferred [facility]. - Mortality Measure Prognosis:: Good
[2020-05-09] MEDS ORDERED: Acetaminophen 325 MG Tab PO PRN (19:50)
[2020-05-09] MEDS ORDERED: Ondansetron 4 MG/2 ML SDV IV PRN (19:50)
--- NOTE | 2020-05-09 19:52 | CR ---
Abdomen: Supine and upright views of the abdomen were obtained. Comparison: Previous abdominal x-ray of 03/16/16. Scattered gas is noted within small bowel and colon. This does not appear to be obstructive at this time. No free air is appreciated. Bony structure shows osteopenia. Vascular calcification is noted. Contrast is noted within the bladder from previous CT chest study. Surgical clips are seen within the left groin. Impression: 1. Findings as noted above. 2. Nothing acute is definitely appreciated. Diagnostic code #2
[2020-05-09] MEDS ORDERED: Amitriptyline 10 MG Tab PO PRN (19:54)
[2020-05-09] MEDS ORDERED: Bisacodyl 5 MG Tab PO PRN (19:54)
[2020-05-09] MEDS: Carvedilol 6.25 MG Tab PO SCH (20:39)
[2020-05-09] MEDS: Gabapentin 300 MG Cap PO SCH (20:40)
[2020-05-09] MEDS ORDERED: Non-Formulary Medication 1 Each (Budesonide/Formoterol 2 PUFF) INH SCH (21:00)
[2020-05-09] MEDS: Formoterol/Mometasone 200-5 MCG 8.8 GM Inhaler IH SCH (23:25)
[2020-05-10] MEDS: Enoxaparin 100 MG/1 ML Syringe SUBCUT SCH ×2 (06:08→17:20)
[2020-05-10] MEDS: Pantoprazole 40 MG Tab.CR PO SCH (06:09)
[2020-05-10] MEDS: Carvedilol 6.25 MG Tab PO SCH ×2 (06:09→17:18)
[2020-05-10] MEDS: Formoterol/Mometasone 200-5 MCG 8.8 GM Inhaler IH SCH ×2 (08:21→20:49)
[2020-05-10] MEDS: Polyethylene Glycol 3350 Powder 17 GM Packet PO SCH (08:44)
[2020-05-10] MEDS: Gabapentin 300 MG Cap PO SCH ×3 (08:46→20:12)
[2020-05-10] MEDS: Verapamil 120 MG Cap.ER PO SCH (08:47)
[2020-05-10] MEDS: Tamsulosin 0.4 MG Cap.ER PO SCH (08:47)
[2020-05-10] MEDS: Losartan 100 MG Tab PO SCH (08:48)
[2020-05-10] MEDS: Cholecalciferol (Vitamin D3) 25 MCG Tab PO SCH (08:48)
[2020-05-10] MEDS: Loratadine 10 MG Tab PO SCH (08:48)
[2020-05-10] MEDS ORDERED: Non-Formulary Medication 1 Each (Omeprazole 20 MG) PO SCH (09:00)
[2020-05-10] MEDS ORDERED: [UNRECOGNIZED DRUG - REMARK] PO SCH (09:00)
--- NOTE | 2020-05-10 10:50 | CT ---
CT chest Technique: Multiple axial sections through the chest were obtained. Intravenous contrast was utilized. Study has been performed as a pulmonary angiogram protocol. Comparison: Previous chest CT study of 02/11/16. Findings: Fluid is seen within the esophagus which is likely from reflux change. Moderately large hiatal hernia is noted. Coronary artery calcification is seen. Mild calcification of the aortic valves are noted. Filling defect is seen within the distal left main pulmonary artery compatible with nonobstructing thrombus. No other findings of pulmonary embolism are appreciated. Heart size appears normal. Cysts are noted within the kidneys but are otherwise not completely included on the study. No mediastinal mass or adenopathy is seen. Thoracic aorta shows atherosclerotic change with no aneurysm. Mild patchy areas of groundglass appearance are seen which most likely represent areas of fibrosis or bronchitis. I do not see anything I would call an acute alveolar change. Bone window settings were reviewed which show osteopenia. There is no acute osseous abnormality being appreciated. Impression: 1. Nonobstructing pulmonary embolism within the distal left main pulmonary artery. 2. Areas of groundglass appearance mostly within the lower lobes. Some of this may represent interval fibrosis from prior chest x-ray although bronchitis is also within the differential. 3. Other findings as noted above. Diagnostic code #5 I agree with preliminary report by Sd finalized on 05/09/20, 1:54 PM LICENSED PHYSICAL THERAPY ASSISTANT
--- NOTE | 2020-05-10 11:14 | CR ---
Chest: Portable view of the chest was obtained. Comparison: Prior chest CT study of 02/11/16 and chest x-ray of 03/11/16. Hiatal hernia is seen. Heart size is within normal limits. Slightly prominent upper mediastinum is seen which is felt to be incidental and due to mediastinal fat. Lungs show no acute parenchymal change. Bony structures are grossly intact. Impression: 1. Findings as noted above. 2. Nothing acute is appreciated. Diagnostic code #2
--- NOTE | 2020-05-10 20:54 | PCM.PN ---
- General Info Date of Service: 05/10/20 Admission Dx/Problem (Free Text): Admission Diagnosis/Problem Admission Diagnosis/Problem Pulmonary embolism Subjective Update: John is doing well. He is not vomiting and appetite is improved. Blood pressure is also improved from initial presentation. He does still have a little bit of a high blood pressure, but not significant or worrisome at this time. Functional Status: Reports: Pain Controlled - Review of Systems General: Reports: No Symptoms HEENT: Reports: No Symptoms Pulmonary: Reports: No Symptoms Cardiovascular: Reports: No Symptoms Gastrointestinal: Reports: No Symptoms Musculoskeletal: Reports: No Symptoms Skin: Reports: No Symptoms Neurological: Reports: No Symptoms - Patient Data Vitals - Most Recent: Last Vital Signs Temp 97.5 F 05/10/20 14:56 Pulse 65 05/10/20 17:18 Resp 16 05/10/20 14:56 BP 148/109 H 05/10/20 17:18 Pulse Ox 94 L 05/10/20 14:56 Weight - Most Recent: 196 lb 9.6 oz I&O - Last 24 Hours: Intake & Output 05/10/20 05/10/20 05/10/20 06:59 14:59 22:59 Intake Total 1450 300 640 Output Total 950 500 Balance 500 300 140 Lab Results Last 24 Hours: Laboratory Results - last 24 hr 05/10/20 05/10/20 05/10/20 Range/Units 06:15 06:15 06:33 WBC 9.15 H (4.23-9.07) K/mm3 RBC 4.65 (4.63-6.08) M/mm3 Hgb 13.8 D (13.7-17.5) gm/dl Hct 42.2 (40.1-51.0) % MCV 90.8 (79.0-92.2) fl MCH 29.7 (25.7-32.2) pg MCHC 32.7 (32.2-35.5) g/dl RDW Std Deviation 45.4 H (35.1-43.9) fL Plt Count 274 (163-337) K/mm3 MPV 8.5 L (9.4-12.3) fl Neut % (Auto) 70.8 H (34.0-67.9) % Lymph % (Auto) 13.6 L (21.8-53.1) % [place] % (Auto) 14.6 H (5.3-12.2) % Eos % (Auto) 0.7 L (0.8-7.0) Baso % (Auto) 0.1 (0.1-1.2) % Neut # (Auto) 6.48 H (1.78-5.38) K/mm3 Lymph # (Auto) 1.24 L (1.32-3.57) K/mm3 [place] # (Auto) 1.34 H (0.30-0.82) K/mm3 Eos # (Auto) 0.06 (0.04-0.54) K/mm3 Baso # (Auto) 0.01 (0.01-0.08) K/mm3 Sodium 140 (136-145) mEq/L Potassium 4.0 (3.5-5.1) mEq/L Chloride 104 (98-107) mEq/L Carbon Dioxide 30 (21-32) mEq/L Anion Gap 10.0 (5-15) BUN 23 H (7-18) mg/dL Creatinine 1.1 (0.7-1.3) mg/dL Est Cr Clr Drug Dosing 49.99 mL/min Estimated GFR (MDRD) > 60 (>60) mL/min BUN/Creatinine Ratio 20.9 H (14-18) Glucose 124 H (83-115) mg/dL POC Glucose 134 H (83-110) mg/dL Calcium 8.8 (8.5-10.1) mg/dL Magnesium 2.1 (1.8-2.4) mg/dl Total Bilirubin 0.9 (0.2-1.0) mg/dL AST 17 (15-37) U/L ALT 17 (16-63) U/L Alkaline Phosphatase 118 H (46-116) U/L Total Protein 6.1 L (6.4-8.2) g/dl Albumin 3.1 L (3.4-5.0) g/dl Globulin 3.0 gm/dL Albumin/Globulin Ratio 1.0 (1-2) Med Orders - Current: Current Medications Acetaminophen (Tylenol) 650 mg PO Q4H PRN PRN Reason: Pain (Mild 1-3)/fever Amitriptyline HCl (Elavil) 10 mg PO BEDTIME PRN PRN Reason: Insomnia Last Admin: 05/09/20 20:38 Dose: 10 mg Documented by: Bisacodyl (Dulcolax) 10 mg PO BEDTIME PRN PRN Reason: Constipation Last Admin: 05/09/20 20:41 Dose: 10 mg Documented by: Carvedilol (Coreg) 6.25 mg PO BIDMEALS [facility] Last Admin: 05/10/20 17:18 Dose: 6.25 mg Documented by: Cholecalciferol (Vitamin D3) 50 mcg PO DAILY [facility] Last Admin: 05/10/20 08:48 Dose: 50 mcg Documented by: Enoxaparin Sodium (Lovenox) 90 mg SUBCUT Q12H [facility] Last Admin: 05/10/20 17:20 Dose: 90 mg Documented by: Gabapentin (Neurontin) 600 mg PO BID [facility] Last Admin: 05/10/20 20:12 Dose: 600 mg Documented by: Gabapentin (Neurontin) 300 mg PO WITHLUNCH [facility] Last Admin: 05/10/20 13:39 Dose: 300 mg Documented by: Loratadine (Claritin) 10 mg PO DAILY [facility] Last Admin: 05/10/20 08:48 Dose: 10 mg Documented by: Losartan Potassium (Cozaar) 100 mg PO DAILY [facility] Last Admin: 05/10/20 08:48 Dose: 100 mg Documented by: Mometasone Furoate/Formoterol Fumar (Dulera 200-5 Mcg) 2 puff IH Q12HR [facility] Last Admin: 05/10/20 08:21 Dose: 2 puff Documented by: Ondansetron HCl (Zofran) 4 mg IV Q4H PRN PRN Reason: Nausea/Vomiting Pantoprazole Sodium (Protonix) 40 mg PO ACBREAKFAST [facility] Last Admin: 05/10/20 06:09 Dose: 40 mg Documented by: Polyethylene Glycol (Miralax) 17 gm PO DAILY [facility] Last Admin: 05/10/20 08:44 Dose: 17 gm Documented by: Sodium Chloride (Saline Flush) 10 ml FLUSH ASDIRECTED PRN PRN Reason: Keep Vein Open Last Admin: 05/09/20 11:15 Dose: 10 ml Documented by: Tamsulosin HCl (Flomax) 0.4 mg PO DAILY [facility] Last Admin: 05/10/20 08:47 Dose: 0.4 mg Documented by: Verapamil HCl (Verelan) 120 mg PO DAILY [facility] Last Admin: 05/10/20 08:47 Dose: 120 mg Documented by: Discontinued Medications Enoxaparin Sodium (Lovenox) 80 mg SUBCUT ONETIME ONE Stop: 05/09/20 15:00 Last Admin: 05/09/20 15:12 Dose: 80 mg Documented by: Sodium Chloride (Normal Saline) 1,000 mls @ 100 mls/hr IV NOW STA Stop: 05/09/20 21:39 Last Infusion: 05/09/20 13:26 Dose: 100 mls/hr Documented by: Sodium Chloride (Normal Saline) 100 mls @ 60 mls/hr IV ASDIRECTED [facility] Last Admin: 05/09/20 12:43 Dose: 60 mls/hr Documented by: Iopamidol (Isovue-370 (76%)) 100 ml IVPUSH ONETIME ONE Stop: 05/09/20 12:15 Last Admin: 05/09/20 12:43 Dose: 100 ml Documented by: Metoclopramide HCl (Reglan) 7.5 mg IVPUSH ONETIME ONE Stop: 05/09/20 12:27 Last Admin: 05/09/20 12:37 Dose: 7.5 mg Documented by: Ondansetron HCl (Zofran) 4 mg IVPUSH ONETIME ONE Stop: 05/09/20 11:41 Last Admin: 05/09/20 11:47 Dose: 4 mg Documented by: Sodium Chloride (Saline Flush) 10 ml FLUSH ONETIME ONE Stop: 05/09/20 12:15 Last Admin: 05/09/20 12:43 Dose: 10 ml Documented by: - Exam Quality Assessment: Supplemental Oxygen General: Alert, Oriented HEENT: Pupils Equal, Mucous Membr. Moist/[place] Neck: Supple Lungs: Normal Respiratory Effort, Crackles (Left lower lung) Cardiovascular: Regular Rate, Regular Rhythm GI/Abdominal Exam: Normal Bowel Sounds, Soft, Non-Tender, No Organomegaly, No Distention, No Abnormal Bruit, No Mass Extremities: Normal Inspection, Normal Range of Motion, Non-Tender, No Pedal Edema, Normal Capillary Refill Skin: Warm, Dry, Intact Sepsis Event Note - Evaluation Sepsis Screening Result: No Definite Risk - Focused Exam Vital Signs: Vital Signs Temp Pulse Resp BP Pulse Ox 05/10/20 17:18 65 148/109 H 05/10/20 14:56 97.5 F 77 16 175/82 H 94 L 05/10/20 11:57 97.9 F 63 16 159/82 H 91 L - Problem List & Annotations (1) Hypoxia SNOMED Code(s): 071136099 Code(s): R09.02 - HYPOXEMIA Status: Acute Current Visit: Yes (2) Pulmonary embolism SNOMED Code(s): 96396677 Code(s): I26.99 - OTHER PULMONARY EMBOLISM WITHOUT ACUTE COR PULMONALE Status: Acute Current Visit: Yes Qualifiers: Pulmonary embolism type: unspecified Chronicity: acute Acute cor pulmonale presence: without acute cor pulmonale Qualified Code(s): I26.99 - O ther pulmonary embolism without acute cor pulmonale (3) Vomiting SNOMED Code(s): 088977718 Code(s): R11.10 - VOMITING, UNSPECIFIED Status: Acute Current Visit: Yes (4) Acute kidney failure SNOMED Code(s): 66128022 Code(s): N17.9 - ACUTE KIDNEY FAILURE, UNSPECIFIED Status: Acute Current Visit: Yes - Problem List Review Problem List Initiated/Reviewed/Updated: Yes - My Orders Last 24 Hours: My Active Orders 05/09/20 19:50 Up With Assistance [RC] ASDIRECTED Acetaminophen [TylenoL] 650 mg PO Q4H PRN Ondansetron [Zofran] 4 mg IV Q4H PRN 05/09/20 19:51 Oxygen Therapy [RC] PRN VTE/DVT Education [RC] DAILY Vital Signs [RC] Q6HR 05/09/20 19:54 Amitriptyline [Elavil] 10 mg PO BEDTIME PRN bisacodyL [Dulcolax] 10 mg PO BEDTIME PRN 05/09/20 21:00 Gabapentin [Neurontin] 600 mg PO BID Mometasone/Formoterol [Dulera 200-5 MCG] 2 puff IH Q12HR carvediloL [Coreg] 6.25 mg PO BIDMEALS 05/10/20 06:00 Enoxaparin [Lovenox] 90 mg SUBCUT Q12H Pantoprazole [ProTONIX] 40 mg PO ACBREAKFAST 05/10/20 09:00 Cholecalciferol (Vitamin D3) [Vitamin D3] 50 mcg PO DAILY Loratadine [Claritin] 10 mg PO DAILY Losartan [Cozaar] 100 mg PO DAILY Tamsulosin [Flomax] 0.4 mg PO DAILY Verapamil [Verelan] 120 mg PO DAILY polyethylene glycoL 3350 [MiraLAX] 17 gm PO DAILY 05/10/20 11:00 Gabapentin [Neurontin] 300 mg PO WITHLUNCH 05/11/20 05:11 CBC WITH AUTO DIFF [HEME] AM CMP [COMPREHENSIVE METABOLIC PN,CMP] [CHEM] AM MAGNESIUM [CHEM] AM PHOSPHORUS [CHEM] AM - Plan Plan:: Assessment 05/09/2020 84 yo male with hx of CAD, valvular disease, chronic SOB presents to the ED with N/V. He is found to have an elevated d-dimer and PE. He has no history of recent travel, carcinoma, restricted movement, or other instigating factors. Pulmonary embolism with no right ventricular strain Hypoxemia Chronic shortness of breath on exertion Nausea and vomitingresolved Coronary artery disease No history of CHF Hypertension * CT angiogram of the chest showed acute nonocclusive pulmonary embolus within the periphery of the upper lobe of the left main pulmonary artery. * Chronic changes within the lung parenchyma with patchy groundglass most likely representing mild pulmonary edema/CHF. * Moderate grade cardiomegaly and coronary atherosclerosis with mild calcifications of the aortic valve leaflets. * Requiring 2 L nasal cannula supplementation * On presentation blood pressure was 190/109 Plan * Patient is having difficulty with nausea and vomiting so elected to use Lovenox 1 mg/kg every 12 hours initially for anticoagulation. * When he is able to take orally will need to discuss with local [facility] clinic which medication is available through the [facility]. They will then get him emergency authorization for a local pharmacy. * Wean patient off of O2 if possible. * Anticoagulation work-up not performed secondary to age. * CODE STATUS DNR/DNI * VTE prophylaxis with Lovenox * Length of stay likely 2 to 3 days. He may be able to go home Monday if weaned off oxygen and able [facility] 05/10/2020 A 4-year-old male presenting with nausea and vomiting secondary to a pulmonary embolism. Currently being anticoagulated with Lovenox 1 mg/kg every 12 hours. Patient is stable and oxygen requirements have come down to 1 L via nasal cannula. Blood pressure has improved with daily blood pressures in the 140 systolic although he has had 1 in the 170 systolic. He is back on his home medications for his blood pressure. Lab work is stable with a white count of 9.15, hemoglobin of 13.8, platelets 274, creatinine 1.1. ALT is slightly elevated 118. Plan: Continue today on Lovenox. Tomorrow switch from Lovenox to oral anticoagulant based on the formulary at the [facility]. If he is weaned off of oxygen suspect he can discharge home. If he is not weaned off of oxygen he may require another day in the hospital or possibly home O2. Continue monitoring vitals every 4 hours.
[2020-05-11] MEDS: Enoxaparin 100 MG/1 ML Syringe SUBCUT SCH (06:09)
[2020-05-11] MEDS: Pantoprazole 40 MG Tab.CR PO SCH (06:10)
[2020-05-11] MEDS: Carvedilol 6.25 MG Tab PO SCH ×2 (06:10→17:29)
[2020-05-11] MEDS: Polyethylene Glycol 3350 Powder 17 GM Packet PO SCH (08:26)
[2020-05-11] MEDS: Cholecalciferol (Vitamin D3) 25 MCG Tab PO SCH (08:26)
[2020-05-11] MEDS: Tamsulosin 0.4 MG Cap.ER PO SCH (08:27)
[2020-05-11] MEDS: Gabapentin 300 MG Cap PO SCH ×3 (08:27→20:19)
[2020-05-11] MEDS: Loratadine 10 MG Tab PO SCH (08:28)
[2020-05-11] MEDS: Losartan 100 MG Tab PO SCH (08:32)
[2020-05-11] MEDS: Verapamil 120 MG Cap.ER PO SCH (08:33)
--- NOTE | 2020-05-11 08:35 | PCM.PN ---
- General Info Date of Service: 05/11/20 Admission Dx/Problem (Free Text): Admission Diagnosis/Problem Admission Diagnosis/Problem Pulmonary embolism Subjective Update: The patient is an 84-year-old gentleman who was admitted to acute hospitalization secondary to pulmonary embolus on May 09, 2020. The patient had hypoxemia associated with this. He also has a history of COPD and has used oxygen in the past. The patient today says that he is doing fairly well. He has no other complaints today. He says he has a poor appetite but has been eating. Functional Status: Reports: Pain Controlled - Review of Systems General: Reports: No Symptoms HEENT: Reports: No Symptoms Pulmonary: Reports: Shortness of Breath Cardiovascular: Reports: No Symptoms Gastrointestinal: Reports: No Symptoms Genitourinary: Reports: No Symptoms Musculoskeletal: Reports: No Symptoms Skin: Reports: No Symptoms Neurological: Reports: No Symptoms Psychiatric: Reports: No Symptoms - Patient Data Vitals - Most Recent: Last Vital Signs Temp 36.6 C 05/11/20 04:29 Pulse 62 05/11/20 08:33 Resp 18 05/11/20 04:29 BP 129/87 05/11/20 08:33 Pulse Ox 97 05/11/20 04:29 Weight - Most Recent: 90.31 kg I&O - Last 24 Hours: Intake & Output 05/10/20 05/11/20 05/11/20 22:59 06:59 14:59 Intake Total 640 200 Output Total 500 600 Balance 140 -400 Lab Results Last 24 Hours: Laboratory Results - last 24 hr 05/11/20 05/11/20 Range/Units 06:27 06:27 WBC 5.69 (4.23-9.07) K/mm3 RBC 4.62 L (4.63-6.08) M/mm3 Hgb 13.6 L (13.7-17.5) gm/dl Hct 42.0 (40.1-51.0) % MCV 90.9 (79.0-92.2) fl MCH 29.4 (25.7-32.2) pg MCHC 32.4 (32.2-35.5) g/dl RDW Std Deviation 45.2 H (35.1-43.9) fL Plt Count 251 (163-337) K/mm3 MPV 8.5 L (9.4-12.3) fl Neut % (Auto) 55.7 (34.0-67.9) % Lymph % (Auto) 23.7 (21.8-53.1) % [place] % (Auto) 16.5 H (5.3-12.2) % Eos % (Auto) 3.7 (0.8-7.0) Baso % (Auto) 0.4 (0.1-1.2) % Neut # (Auto) 3.17 (1.78-5.38) K/mm3 Lymph # (Auto) 1.35 (1.32-3.57) K/mm3 [place] # (Auto) 0.94 H (0.30-0.82) K/mm3 Eos # (Auto) 0.21 (0.04-0.54) K/mm3 Baso # (Auto) 0.02 (0.01-0.08) K/mm3 Manual Slide Review Normal smear Sodium 138 (136-145) mEq/L Potassium 4.0 (3.5-5.1) mEq/L Chloride 102 (98-107) mEq/L Carbon Dioxide 28 (21-32) mEq/L Anion Gap 12.0 (5-15) BUN 24 H (7-18) mg/dL Creatinine 1.0 (0.7-1.3) mg/dL Est Cr Clr Drug Dosing 54.99 mL/min Estimated GFR (MDRD) > 60 (>60) mL/min BUN/Creatinine Ratio 24.0 H (14-18) Glucose 110 (83-115) mg/dL Calcium 8.5 (8.5-10.1) mg/dL Phosphorus 3.0 (2.6-4.7) mg/dL Magnesium 1.9 (1.8-2.4) mg/dl Total Bilirubin 1.0 (0.2-1.0) mg/dL AST 17 (15-37) U/L ALT 15 L (16-63) U/L Alkaline Phosphatase 118 H (46-116) U/L Total Protein 6.0 L (6.4-8.2) g/dl Albumin 3.1 L (3.4-5.0) g/dl Globulin 2.9 gm/dL Albumin/Globulin Ratio 1.1 (1-2) Med Orders - Current: Current Medications Acetaminophen (Tylenol) 650 mg PO Q4H PRN PRN Reason: Pain (Mild 1-3)/fever Amitriptyline HCl (Elavil) 10 mg PO BEDTIME PRN PRN Reason: Insomnia Last Admin: 05/09/20 20:38 Dose: 10 mg Documented by: Bisacodyl (Dulcolax) 10 mg PO BEDTIME PRN PRN Reason: Constipation Last Admin: 05/09/20 20:41 Dose: 10 mg Documented by: Carvedilol (Coreg) 6.25 mg PO BIDMEALS [facility] Last Admin: 05/11/20 06:10 Dose: 6.25 mg Documented by: Cholecalciferol (Vitamin D3) 50 mcg PO DAILY [facility] Last Admin: 05/11/20 08:26 Dose: 50 mcg Documented by: Enoxaparin Sodium (Lovenox) 90 mg SUBCUT Q12H [facility] Last Admin: 05/11/20 06:09 Dose: 90 mg Documented by: Gabapentin (Neurontin) 600 mg PO BID [facility] Last Admin: 05/11/20 08:27 Dose: 600 mg Documented by: Gabapentin (Neurontin) 300 mg PO WITHLUNCH [facility] Last Admin: 05/10/20 13:39 Dose: 300 mg Documented by: Loratadine (Claritin) 10 mg PO DAILY [facility] Last Admin: 05/11/20 08:28 Dose: 10 mg Documented by: Losartan Potassium (Cozaar) 100 mg PO DAILY [facility] Last Admin: 05/11/20 08:32 Dose: 100 mg Documented by: Mometasone Furoate/Formoterol Fumar (Dulera 200-5 Mcg) 2 puff IH Q12HR [facility] Last Admin: 05/10/20 20:49 Dose: 2 puff Documented by: Ondansetron HCl (Zofran) 4 mg IV Q4H PRN PRN Reason: Nausea/Vomiting Pantoprazole Sodium (Protonix) 40 mg PO ACBREAKFAST [facility] Last Admin: 05/11/20 06:10 Dose: 40 mg Documented by: Polyethylene Glycol (Miralax) 17 gm PO DAILY [facility] Last Admin: 05/11/20 08:26 Dose: 17 gm Documented by: Sodium Chloride (Saline Flush) 10 ml FLUSH ASDIRECTED PRN PRN Reason: Keep Vein Open Last Admin: 05/09/20 11:15 Dose: 10 ml Documented by: Tamsulosin HCl (Flomax) 0.4 mg PO DAILY [facility] Last Admin: 05/11/20 08:27 Dose: 0.4 mg Documented by: Verapamil HCl (Verelan) 120 mg PO DAILY [facility] Last Admin: 05/11/20 08:33 Dose: 120 mg Documented by: Discontinued Medications Enoxaparin Sodium (Lovenox) 80 mg SUBCUT ONETIME ONE Stop: 05/09/20 15:00 Last Admin: 05/09/20 15:12 Dose: 80 mg Documented by: Sodium Chloride (Normal Saline) 1,000 mls @ 100 mls/hr IV NOW STA Stop: 05/09/20 21:39 Last Infusion: 05/09/20 13:26 Dose: 100 mls/hr Documented by: Sodium Chloride (Normal Saline) 100 mls @ 60 mls/hr IV ASDIRECTED [facility] Last Admin: 05/09/20 12:43 Dose: 60 mls/hr Documented by: Iopamidol (Isovue-370 (76%)) 100 ml IVPUSH ONETIME ONE Stop: 05/09/20 12:15 Last Admin: 05/09/20 12:43 Dose: 100 ml Documented by: Metoclopramide HCl (Reglan) 7.5 mg IVPUSH ONETIME ONE Stop: 05/09/20 12:27 Last Admin: 05/09/20 12:37 Dose: 7.5 mg Documented by: Ondansetron HCl (Zofran) 4 mg IVPUSH ONETIME ONE Stop: 05/09/20 11:41 Last Admin: 05/09/20 11:47 Dose: 4 mg Documented by: Sodium Chloride (Saline Flush) 10 ml FLUSH ONETIME ONE Stop: 05/09/20 12:15 Last Admin: 05/09/20 12:43 Dose: 10 ml Documented by: - Exam Quality Assessment: Supplemental Oxygen, DVT Prophylaxis General: Alert, Oriented, Cooperative, No Acute Distress HEENT: Pupils Equal, Pupils Reactive, EOMI, Mucous Membr. Moist/[place] Neck: Supple, Trachea Midline Lungs: Normal Respiratory Effort, Crackles Cardiovascular: Regular Rate, Regular Rhythm, Murmurs (Systolic murmur, grade 3 out of 6) GI/Abdominal Exam: Normal Bowel Sounds, Soft, Non-Tender, No Distention (Male) Exam: Deferred Back Exam: Normal Inspection, Full Range of Motion Extremities: Normal Inspection, No Pedal Edema Skin: Warm, Dry, Intact Neurological: No New Focal Deficit Psy/Mental Status: Alert, Normal Affect, Normal Mood Sepsis Event Note - Evaluation Sepsis Screening Result: No Definite Risk - Focused Exam Vital Signs: Vital Signs Temp Pulse Resp BP Pulse Ox Pulse Ox 05/11/20 08:33 62 129/87 05/11/20 08:32 129/87 05/11/20 06:10 97 156/85 H 05/11/20 04:29 36.6 C 61 18 156/85 H 97 05/10/20 20:50 96 - Problem List & Annotations (1) Pulmonary embolism SNOMED Code(s): 00319198 Code(s): I26.99 - OTHER PULMONARY EMBOLISM WITHOUT ACUTE COR PULMONALE Status: Acute Current Visit: Yes Qualifiers: Pulmonary embolism type: unspecified Chronicity: acute Acute cor pulmonale presence: without acute cor pulmonale Qualified Code(s): I26.99 - Other pulmonary embolism without acute cor pulmonale (2) Carcinoma of colon SNOMED Code(s): 961103389 Code(s): C18.9 - MALIGNANT NEOPLASM OF COLON, UNSPECIFIED Status: Acute Current Visit: No - Problem List Review Problem List Initiated/Reviewed/Updated: Yes - Assessment Assessment:: The patient is an 84-year-old gentleman who had been admitted secondary to pulmonary emboli and hypoxia. The patient initially had what was thought to be an unprovoked pulmonary emboli and he does have a history of cancer with partial colectomy due to cancer. Also been noted that the patient had a pulmonary emboli which was considered to be nonobstructive. Patient has exhibited some improvement will consider at this time and his oxygen demands have improved. The patient says that he would not like to go home with oxygen. The patient also has been treated with Lovenox and this will be discontinued tomorrow and he will be started on p.o. Eliquis. Repeat laboratory studies have been ordered. The patient should be ambulating. Possible discharge in 1 to 2 days. - Plan Plan:: Assessment 05/09/2020 84 yo male with hx of CAD, valvular disease, chronic SOB presents to the ED with N/V. He is found to have an elevated d-dimer and PE. He has no history of recent travel, carcinoma, restricted movement, or other instigating factors. Pulmonary embolism with no right ventricular strain Hypoxemia Chronic shortness of breath on exertion Nausea and vomitingresolved Coronary artery disease No history of CHF Hypertension * CT angiogram of the chest showed acute nonocclusive pulmonary embolus within the periphery of the upper lobe of the left main pulmonary artery. * Chronic changes within the lung parenchyma with patchy groundglass most likely representing mild pulmonary edema/CHF. * Moderate grade cardiomegaly and coronary atherosclerosis with mild calcifications of the aortic valve leaflets. * Requiring 2 L nasal cannula supplementation * On presentation blood pressure was 190/109 Plan * Patient is having difficulty with nausea and vomiting so elected to use Lovenox 1 mg/kg every 12 hours initially for anticoagulation. * When he is able to take orally will need to discuss with local [facility] clinic which medication is available through the [facility]. They will then get him emergency authorization for a local pharmacy. * Wean patient off of O2 if possible. * Anticoagulation work-up not performed secondary to age. * CODE STATUS DNR/DNI * VTE prophylaxis with Lovenox * Length of stay likely 2 to 3 days. He may be able to go home Monday if weaned off oxygen and able to get preferred NOAC from [facility]. 05/10/2020 A 4-year-old male presenting with nausea and vomiting secondary to a pulmonary embolism. Currently being anticoagulated with Lovenox 1 mg/kg every 12 hours. Patient is stable and oxygen requirements have come down to 1 L via nasal cannula. Blood pressure has improved with daily blood pressures in the 140 systolic although he has had 1 in the 170 systolic. He is back on his home medications for his blood pressure. Lab work is stable with a white count of 9.15, hemoglobin of 13.8, platelets 274, creatinine 1.1. ALT is slightly elevated 118. Plan: Continue today on Lovenox. Tomorrow switch from Lovenox to oral anticoagulant based on the formulary at the [facility]. If he is weaned off of oxygen suspect he can discharge home. If he is not weaned off of oxygen he may require another day in the hospital or possibly home O2. Continue monitoring vitals every 4 hours.
[2020-05-11] MEDS: Formoterol/Mometasone 200-5 MCG 8.8 GM Inhaler IH SCH ×2 (09:50→20:08)
[2020-05-11] MEDS: Apixaban 5 MG Tab PO SCH (20:19)
[2020-05-12] MEDS: Pantoprazole 40 MG Tab.CR PO SCH (06:42)
[2020-05-12] MEDS: Carvedilol 6.25 MG Tab PO SCH (06:42)
[2020-05-12] MEDS: Tamsulosin 0.4 MG Cap.ER PO SCH (08:06)
[2020-05-12] MEDS: Verapamil 120 MG Cap.ER PO SCH (08:06)
[2020-05-12] MEDS: Loratadine 10 MG Tab PO SCH (08:06)
[2020-05-12] MEDS: Cholecalciferol (Vitamin D3) 25 MCG Tab PO SCH (08:11)
[2020-05-12] MEDS: Losartan 100 MG Tab PO SCH (08:12)
[2020-05-12] MEDS: Gabapentin 300 MG Cap PO SCH (08:12)
[2020-05-12] MEDS: Apixaban 5 MG Tab PO SCH (08:12)
[2020-05-12 08:13] VITALS: PULSE 69
[2020-05-12] MEDS: Polyethylene Glycol 3350 Powder 17 GM Packet PO SCH (08:13)
[2020-05-12] MEDS: Formoterol/Mometasone 200-5 MCG 8.8 GM Inhaler IH SCH (09:15)
--- NOTE | 2020-05-12 09:18 | PCM.DCSUM1 ---
Discharge Summary - Hospital Course Diagnosis: Stroke: No - Discharge Data Discharge Date: 05/12/20 Discharge Disposition: Home, Self-Care 01 Condition: Good - Referral to Home Health Primary Care Physician: Meliza Marquez MD - Discharge Diagnosis/Problem(s) (1) Pulmonary embolism SNOMED Code(s): 45988279 ICD Code: I26.99 - OTHER PULMONARY EMBOLISM WITHOUT ACUTE COR PULMONALE Status: Acute Current Visit: Yes Qualifiers: Pulmonary embolism type: unspecified Chronicity: acute Acute cor pulmonale presence: without acute cor pulmonale Qualified Code(s): I26.99 - Other pulmonary embolism without acute cor pulmonale (2) Carcinoma of colon SNOMED Code(s): 602152250 ICD Code: C18.9 - MALIGNANT NEOPLASM OF COLON, UNSPECIFIED Status: Acute Current Visit: No - Patient Summary/Data Consults: Consultations 05/11/20 11:11 OT Evaluation and Treatment [CONS] Routine PT Evaluation and Treatment [CONS] Routine Hospital Course: The patient is an 84-year-old gentleman who was admitted to acute hospitalization on May 09, 2020. The patient was admitted secondary to pulmonary embolism. CT scan in the emergency department showed that he an acute nonocclusive pulmonary emboli within the periphery of left lobe of the left main pulmonary artery. It was thought initially that the pulmonary emboli was unprovoked however the patient 5 years ago had a history of colon cancer with colectomy. The patient upon admission was started on Lovenox 80 mg subcutaneously once a day. The patient had tolerated this well. The patient was also having abdominal complaints primarily severe nausea and vomiting. Evaluation of the patient's abdomen did not reveal anything acute for the patient. Patient was found to be initially hypoxic at 90% on room air. He was saturating at 92 to 95% while on 2 L of oxygen via nasal cannula. The patient reports that he had not used oxygen at home. By day of discharge the patient's hypoxemia has resolved. He did not require oxygen. The patient then was transitioned to oral anticoagulants he was started on Eliquis at 10 mg p.o. twice daily for total of 14 days and then transitioned again to Eliquis 5 mg p .o. twice daily. The patient had improved sufficiently by day of discharge that he felt like he could go home safely. The patient had been tolerating his diet. He also had been ambulating. The patient has been recommended to follow- up with his primary care physician. The patient is also to have diet as tolerated. He is to have activity as tolerated. The patient has been hemodynamically stable and he is discharged from acute hospitalization with the recommendations listed above. - Patient Instructions Diet: Heart Healthy Diet Activity: As Tolerated Notify Provider of: Fever, Increased Pain - Discharge Plan *PRESCRIPTION DRUG MONITORING PROGRAM REVIEWED*: No *COPY OF PRESCRIPTION DRUG MONITORING REPORT IN PATIENT BEATRICE: No Prescriptions/Med Rec: Apixaban [Eliquis] 10 mg PO BID #24 tablet Home Medications: Home Meds Amitriptyline [Elavil] 10 mg PO BEDTIME PRN 02/10/16 [History] Aspirin [Adult Low Dose Aspirin EC] 81 mg PO DAILY 02/10/16 [History] Cholecalciferol (Vitamin D3) [Vitamin D3] 2,000 units PO DAILY 02/10/16 [History] Fish Oil/[place]-3 Fatty Acids [Fish Oil 1,000 MG] 1,000 mg PO DAILY 02/10/16 [History] Gabapentin [Neurontin] 600 mg PO BID 02/10/16 [History] Losartan [Cozaar] 100 mg PO DAILY 02/10/16 [History] Polyethylene Glycol 3350 [MiraLAX] 17 gm PO DAILY packet 03/18/16 [Rx] Tamsulosin [Flomax] 0.4 mg PO DAILY #30 cap.er 03/18/16 [Rx] Albuterol [Take Home: Albuterol 18 GM, 1 INH Pack] 2 puff INH Q6HR PRN 05/09/20 [History] Ascorbic Acid [Vitamin C] 1,000 mg PO DAILY 05/09/20 [History] Budesonide/Formoterol [Symbicort 160-4.5 MCG] 2 puff INH Q12HR 05/09/20 [History] Cetirizine HCl [Allergy Relief] 10 mg PO DAILY 05/09/20 [History] Omeprazole 20 mg PO DAILY 05/09/20 [History] Verapamil [[place]an SR] 120 mg PO DAILY 05/09/20 [History] bisacodyL [Bisacodyl] 10 mg PO BEDTIME PRN 05/09/20 [History] carvediloL [Carvedilol] 6.25 mg PO BID 05/09/20 [History] terbinafine HCL [Athlete's Foot] 1 applic TP BID 05/09/20 [History] Apixaban [Eliquis] 10 mg PO BID #24 tablet 05/12/20 [Rx] Oxygen Therapy Mode: Room Air Patient Handouts: Coronary Artery Disease, Male, Pulmonary Embolism, Apixaban oral tablets Forms: ED Department Discharge Referrals: Meliza Marquez MD [Primary Care Provider] - (the [place] [facility] will call you to schedule a follow up appointment) - Discharge Summary/Plan Comment DC Time >30 min.: Yes - General Info Date of Service: 05/12/20 Admission Dx/Problem (Free Text: Admission Diagnosis/Problem Admission Diagnosis/Problem Pulmonary embolism Subjective Update: The patient today is doing well. He has denied any fever or chills. He has been able to tolerate his diet. The patient feels like he can safely go home today. Functional Status: Reports: Pain Controlled, Tolerating Diet - Review of Systems General: Reports: No Symptoms HEENT: Reports: No Symptoms Pulmonary: Reports: No Symptoms Cardiovascular: Reports: No Symptoms Gastrointestinal: Reports: No Symptoms Genitourinary: Reports: No Symptoms Musculoskeletal: Reports: No Symptoms Skin: Reports: No Symptoms Neurological: Reports: No Symptoms Psychiatric: Reports: No Symptoms - Patient Data Vitals - Most Recent: Last Vital Signs Temp 36.4 C 05/12/20 08:10 Pulse 69 05/12/20 08:10 Resp 17 05/12/20 08:10 BP 140/62 05/12/20 08:12 Pulse Ox 97 05/12/20 09:15 Weight - Most Recent: 89.63 kg I&O - Last 24 hours: Intake & Output 05/11/20 05/12/20 05/12/20 22:59 06:59 14:59 Intake Total 1040 700 Output Total 1150 900 Balance -110 -200 Lab Results - Last 24 hrs: Laboratory Results - last 24 hr 05/12/20 05/12/20 Range/Units 05:58 05:58 WBC 5.98 (4.23-9.07) K/mm3 RBC 4.76 (4.63-6.08) M/mm3 Hgb 13.9 (13.7-17.5) gm/dl Hct 43.0 (40.1-51.0) % MCV 90.3 (79.0-92.2) fl MCH 29.2 (25.7-32.2) pg MCHC 32.3 (32.2-35.5) g/dl RDW Std Deviation 44.5 H (35.1-43.9) fL Plt Count 258 (163-337) K/mm3 MPV 8.6 L (9.4-12.3) fl Neut % (Auto) 61.8 (34.0-67.9) % Lymph % (Auto) 20.9 L (21.8-53.1) % [place] % (Auto) 14.2 H (5.3-12.2) % Eos % (Auto) 2.5 (0.8-7.0) Baso % (Auto) 0.3 (0.1-1.2) % Neut # (Auto) 3.69 (1.78-5.38) K/mm3 Lymph # (Auto) 1.25 L (1.32-3.57) K/mm3 [place] # (Auto) 0.85 H (0.30-0.82) K/mm3 Eos # (Auto) 0.15 (0.04-0.54) K/mm3 Baso # (Auto) 0.02 (0.01-0.08) K/mm3 Sodium 139 (136-145) mEq/L Potassium 4.1 (3.5-5.1) mEq/L Chloride 102 (98-107) mEq/L Carbon Dioxide 31 (21-32) mEq/L Anion Gap 10.1 (5-15) BUN 23 H (7-18) mg/dL Creatinine 1.1 (0.7-1.3) mg/dL Est Cr Clr Drug Dosing 49.99 mL/min Estimated GFR (MDRD) > 60 (>60) mL/min BUN/Creatinine Ratio 20.9 H (14-18) Glucose 125 H (83-115) mg/dL Calcium 8.9 (8.5-10.1) mg/dL Med Orders - Current: Current Medications Acetaminophen (Tylenol) 650 mg PO Q4H PRN PRN Reason: Pain (Mild 1-3)/fever Amitriptyline HCl (Elavil) 10 mg PO BEDTIME PRN PRN Reason: Insomnia Last Admin: 05/09/20 20:38 Dose: 10 mg Documented by: Apixaban (Eliquis) 10 mg PO BID [facility] Stop: 05/18/20 09:01 Last Admin: 05/12/20 08:12 Dose: 10 mg Documented by: Apixaban (Eliquis) 5 mg PO BID [facility] Bisacodyl (Dulcolax) 10 mg PO BEDTIME PRN PRN Reason: Constipation Last Admin: 05/09/20 20:41 Dose: 10 mg Documented by: Carvedilol (Coreg) 6.25 mg PO BIDMEALS [facility] Last Admin: 05/12/20 06:42 Dose: 6.25 mg Documented by: Cholecalciferol (Vitamin D3) 50 mcg PO DAILY [facility] Last Admin: 05/12/20 08:11 Dose: 50 mcg Documented by: Gabapentin (Neurontin) 300 mg PO WITHLUNCH [facility] Last Admin: 05/11/20 11:08 Dose: 300 mg Documented by: Gabapentin (Neurontin) 600 mg PO BID [facility] Loratadine (Claritin) 10 mg PO DAILY [facility] Last Admin: 05/12/20 08:06 Dose: 10 mg Documented by: Losartan Potassium (Cozaar) 100 mg PO DAILY [facility] Last Admin: 05/12/20 08:12 Dose: 100 mg Documented by: Mometasone Furoate/Formoterol Fumar (Dulera 200-5 Mcg) 2 puff IH Q12HR [facility] Last Admin: 05/12/20 09:15 Dose: 2 puff Documented by: Ondansetron HCl (Zofran) 4 mg IV Q4H PRN PRN Reason: Nausea/Vomiting Pantoprazole Sodium (Protonix) 40 mg PO ACBREAKFAST [facility] Last Admin: 05/12/20 06:42 Dose: 40 mg Documented by: Polyethylene Glycol (Miralax) 17 gm PO DAILY [facility] Last Admin: 05/12/20 08:13 Dose: 17 gm Documented by: Sodium Chloride (Saline Flush) 10 ml FLUSH ASDIRECTED PRN PRN Reason: Keep Vein Open Last Admin: 05/09/20 11:15 Dose: 10 ml Documented by: Tamsulosin HCl (Flomax) 0.4 mg PO DAILY [facility] Last Admin: 05/12/20 08:06 Dose: 0.4 mg Documented by: Verapamil HCl (Verelan) 120 mg PO DAILY [facility] Last Admin: 05/12/20 08:06 Dose: 120 mg Documented by: Discontinued Medications Enoxaparin Sodium (Lovenox) 80 mg SUBCUT ONETIME ONE Stop: 05/09/20 15:00 Last Admin: 05/09/20 15:12 Dose: 80 mg Documented by: Enoxaparin Sodium (Lovenox) 90 mg SUBCUT Q12H [facility] Last Admin: 05/11/20 06:09 Dose: 90 mg Documented by: Gabapentin (Neurontin) 600 mg PO BID [facility] Last Admin: 05/12/20 08:12 Dose: 600 mg Documented by: Sodium Chloride (Normal Saline) 1,000 mls @ 100 mls/hr IV NOW STA Stop: 05/09/20 21:39 Last Infusion: 05/09/20 13:26 Dose: 100 mls/hr Documented by: Sodium Chloride (Normal Saline) 100 mls @ 60 mls/hr IV ASDIRECTED [facility] Last Admin: 05/09/20 12:43 Dose: 60 mls/hr Documented by: Iopamidol (Isovue-370 (76%)) 100 ml IVPUSH ONETIME ONE Stop: 05/09/20 12:15 Last Admin: 05/09/20 12:43 Dose: 100 ml Documented by: Metoclopramide HCl (Reglan) 7.5 mg IVPUSH ONETIME ONE Stop: 05/09/20 12:27 Last Admin: 05/09/20 12:37 Dose: 7.5 mg Documented by: Ondansetron HCl (Zofran) 4 mg IVPUSH ONETIME ONE Stop: 05/09/20 11:41 Last Admin: 05/09/20 11:47 Dose: 4 mg Documented by: Sodium Chloride (Saline Flush) 10 ml FLUSH ONETIME ONE Stop: 05/09/20 12:15 Last Admin: 05/09/20 12:43 Dose: 10 ml Documented by: - Exam Quality Assessment: Reports: DVT Prophylaxis. Denies: Supplemental Oxygen General: Reports: Alert, Oriented, Cooperative, No Acute Distress HEENT: Reports: Pupils Equal, Pupils Reactive, EOMI, Mucous Membr. Moist/[place] Neck: Reports: Supple, Trachea Midline Lungs: Reports: Clear to Auscultation, Normal Respiratory Effort Cardiovascular: Reports: Regular Rate, Regular Rhythm GI/Abdominal Exam: Normal Bowel Sounds, Soft, Non-Tender, No Distention (Male) Exam: Deferred Rectal (Males) Exam: Deferred Back Exam: Reports: Normal Inspection, Full Range of Motion Extremities: Normal Inspection, No Pedal Edema Skin: Reports: Warm, Dry, Intact Neurological: Reports: No New Focal Deficit Psy/Mental Status: Reports: Alert, Normal Affect
[2020-05-12 16:30] VITALS: BP 158/93
[2020-05-12] MEDS ORDERED: Gabapentin 600 MG Tab PO SCH (21:00)
[2020-05-18] MEDS ORDERED: Apixaban 5 MG Tab PO SCH (21:00)
== END 2020-05-12 12:15 | disposition home or self-care (01) | DRG 176 ==
LOC: JD.ED 10:52 → JD.MS 15:04
PROVIDERS: ADMIT Family Medicine; ATTEND Family Medicine
DX: I26.99 Other pulmonary embolism without acute cor pulmonale (principal); R11.2 Nausea with vomiting, unspecified; C18.9 Malignant neoplasm of colon, unspecified; N17.9 Acute kidney failure, unspecified; E78.00 Pure hypercholesterolemia, unspecified; I05.2 Rheumatic mitral stenosis with insufficiency; J44.9 Chronic obstructive pulmonary disease, unspecified; K44.9 Diaphragmatic hernia without obstruction or gangrene; K57.90 Diverticulosis of intestine, part unspecified, without perforation or abscess without bleeding; M19.90 Unspecified osteoarthritis, unspecified site; G89.29 Other chronic pain; M54.9 Dorsalgia, unspecified; E11.9 Type 2 diabetes mellitus without complications; D64.9 Anemia, unspecified; Z88.0 Allergy status to penicillin; Z88.8 Allergy status to other drugs, medicaments and biological substances; Z91.010 Allergy to peanuts; Z79.82 Long term (current) use of aspirin; Z79.51 Long term (current) use of inhaled steroids; Z79.899 Other long term (current) drug therapy; N40.0 Benign prostatic hyperplasia without lower urinary tract symptoms; I25.10 Atherosclerotic heart disease of native coronary artery without angina pectoris; E78.5 Hyperlipidemia, unspecified; K21.9 Gastro-esophageal reflux disease without esophagitis; Z98.890 Other specified postprocedural states; Z98.42 Cataract extraction status, left eye; Z98.41 Cataract extraction status, right eye; R11.0 Nausea; R09.02 Hypoxemia; Z66 Do not resuscitate; Z20.822 Contact with and (suspected) exposure to COVID-19; Z90.49 Acquired absence of other specified parts of digestive tract; I10 Essential (primary) hypertension
CPT/HCPCS: 0240U; 36415; 71045; 71275; 74019; 80048; 80053; 81001; 82962; 83690; 83735; 83880; 84100; 84484; 85025; 85379; 85610; 86140; 93005; 94640; 94760; 94761; 96374; 96375; 97110; 97161; 99285; 99222; 99232; 99239; 99284; A9270-GY; J1650; J2405; J2765; J7030; Q9967

== ENCOUNTER 2021-07-14 03:10 | Emergency (ER) | payer OTHER ==
[2021-07-14] MEDS ORDERED: Oxymetazoline 0.05% Nasal Spray 30 ML Bottle NAS ONE (03:20)
[2021-07-14] MEDS ORDERED: Lidocaine 1% with EPINEPHrine 1:100,000 10 ML MDV ONE (03:38)
[2021-07-14] MEDS ORDERED: Phenylephrine 0.5% Nasal Spray 15 ML Bot NASRT ONE (03:39)
[2021-07-14] MEDS ORDERED: Ondansetron 4 MG Tab.DIS PO ONE (03:42)
[2021-07-14 07:11] VITALS: BP 169/86; PULSE 67
== END 2021-07-14 09:34 | disposition home or self-care (01) ==
LOC: JD.ED 03:10
DX: R04.0 Epistaxis (principal); I25.10 Atherosclerotic heart disease of native coronary artery without angina pectoris; K21.9 Gastro-esophageal reflux disease without esophagitis; E11.9 Type 2 diabetes mellitus without complications; Z91.010 Allergy to peanuts; Z88.0 Allergy status to penicillin; Z88.8 Allergy status to other drugs, medicaments and biological substances; Z79.82 Long term (current) use of aspirin; Z79.899 Other long term (current) drug therapy; Z79.01 Long term (current) use of anticoagulants
CPT/HCPCS: 30901; 99283; A9270

== ENCOUNTER 2021-07-30 13:55 | Emergency (ER) | payer OTHER ==
[2021-07-30 14:56] VITALS: BP 65/40; PULSE 70
[2021-07-30] MEDS ORDERED: Calcium Gluconate 10% 1 GM/10 ML SDV IVPUSH ONE ×2 (15:12→17:19)
[2021-07-30] MEDS ORDERED: DOPamine/Dextrose 5%-Water 400 MG/250 ML BAG IV SCH (15:15)
[2021-07-30] MEDS ORDERED: Insulin Regular, Human 100 Units/ML 3 ML Vial IV ONE (15:21)
[2021-07-30] MEDS ORDERED: 50% Dextrose in Water 50 ML Syringe IVPUSH ONE (15:23)
[2021-07-30] MEDS ORDERED: fentaNYL 100 MCG/2 ML SDV IVPUSH ONE (15:27)
[2021-07-30] MEDS ORDERED: Dextrose 10% in Water 500 ML IV SCH (15:30)
== END 2021-07-30 18:32 ==
LOC: JD.ED 13:55
DX: I95.9 Hypotension, unspecified (principal); R00.1 Bradycardia, unspecified; E87.5 Hyperkalemia; I25.10 Atherosclerotic heart disease of native coronary artery without angina pectoris; E78.00 Pure hypercholesterolemia, unspecified; I10 Essential (primary) hypertension; K21.9 Gastro-esophageal reflux disease without esophagitis; Z88.0 Allergy status to penicillin; Z91.010 Allergy to peanuts; Z88.8 Allergy status to other drugs, medicaments and biological substances; Z88.5 Allergy status to narcotic agent; Z79.82 Long term (current) use of aspirin; Z79.899 Other long term (current) drug therapy; Z20.822 Contact with and (suspected) exposure to COVID-19
CPT/HCPCS: 36415; 71045; 80053; 82947; 84132; 84484; 85025; 85610; 85730; 87635; 96365; 96366; 96375; 96376; 99285; J0610; J1265; J1815; J3010; 93010; U0002

== ENCOUNTER 2024-01-13 21:48 | Inpatient (IN) | payer OTHER ==
[2024-01-13 22:13] LABS: BASOPHILS PERCENT AUTO 0.1 % (0.0-1.0); EOSINOPHILS PERCENT AUTO 0.1 % (0.0-6.0); HEMATOCRIT 39.8 % (42.0-52.0); HEMOGLOBIN 12.9 gm/dl (14.0-18.0); IMMATURE GRAN ABSOLUTE AUTO 0.07 K/mm3 (0.00-0.05); IMMATURE GRAN PERCENT AUTO 0.4 % (0.0-0.4); LYMPHOCYTES ABSOLUTE AUTO 0.6 K/mm3 (1.0-4.8); LYMPHOCYTES PERCENT AUTO 3.6 % (24.0-44.0); MEAN CORPUSCULAR HEMOGLOBIN 30.2 pg (28.0-32.0); MEAN CORPUSCULAR HGB CONC 32.4 g/dl (32.0-36.0); MEAN CORPUSCULAR VOLUME 93.2 fl (83.0-99.0); MEAN PLATELET VOLUME 8.2 fl (9.4-12.4); MONOCYTES ABSOLUTE AUTO 1.5 K/mm3 (0.0-0.8); MONOCYTES PERCENT AUTO 8.4 % (0.0-8.0); NEUTROPHILS ABSOLUTE AUTO 15.5 K/mm3 (1.8-7.7); NEUTROPHILS PERCENT AUTO 87.4 % (41.0-71.0); PLATELET COUNT,PLT 195 K/mm3 (150-400); RED BLOOD CELL COUNT 4.27 M/mm3 (4.52-5.90); WHITE BLOOD CELL COUNT,WBC 17.68 K/mm3 (3.9-11.3)
[2024-01-13] MEDS: Sodium Chloride 0.9% 1,000 ML IV SCH (22:14)
[2024-01-13] MEDS: Sodium Chloride 0.9% 10 ML Syringe FLUSH PRN (22:15)
[2024-01-13 22:32] LABS: INR 1.17; PROTHROMBIN TIME 12.3 SECONDS (9.7-12.0)
[2024-01-13 22:33] LABS: PTT,PARTIAL THROMBOPLSTIN TIME 28.2 SECONDS (21.7-31.4)
[2024-01-13 22:45] LABS: A/G RATIO 1.1 (1-2); ALBUMIN 3.5 g/dl (3.4-5.0); ANION GAP 8.3 (5-15); BUN/CREATININE RATIO 16.2 (14-18); C-REACTIVE PROTEIN 2.61 mg/dL (<0.30); CALCIUM 8.9 mg/dL (8.5-10.1); CREATININE 1.3 mg/dL (0.7-1.3); EST CRCL DRUG DOSING (CG) 36.72 mL/min; POTASSIUM,K 4.3 mEq/L (3.5-5.1); PROTEIN TOTAL,TP 6.7 g/dl (6.4-8.2)
[2024-01-13] MEDS: Ondansetron 4 MG/2 ML SDV IVPUSH ONE (23:44)
[2024-01-14 00:45] LABS: APPEARANCE,URINE CLOUDY (Clear); BILIRUBIN,URINE NEGATIVE (Negative); COLOR,URINE YELLOW (Yellow); GLUCOSE,URINE NEGATIVE (Negative); KETONES,URINE NEGATIVE (Negative); LEUKOCYTE ESTERASE,URINE 2+ (Negative); NITRITE,URINE POSITIVE (Negative); OCCULT BLOOD,URINE 1+ (Negative); PROTEIN,URINE 1+ (Negative)
[2024-01-14 01:03] LABS: BACTERIA,URINE MANY /hpf (FEW); MUCUS,URINE NOT SEEN /hpf (FEW); SQUAMOUS EPITHELIAL CELLS,UR NOT SEEN /hpf (0-5); WBC,URINE TOO NUMEROUS TO CNT /hpf (0-5)
[2024-01-14] MEDS: cefTRIAXone 1 GM in Sodium Chloride 0.9% 100 ML IV ONE (01:39)
[2024-01-14 08:45] LABS: BASOPHILS PERCENT AUTO 0.1 % (0.0-1.0); HEMATOCRIT 37.5 % (42.0-52.0); HEMOGLOBIN 12.3 gm/dl (14.0-18.0); IMMATURE GRAN ABSOLUTE AUTO 0.27 K/mm3 (0.00-0.05); IMMATURE GRAN PERCENT AUTO 1.2 % (0.0-0.4); LYMPHOCYTES ABSOLUTE AUTO 1.2 K/mm3 (1.0-4.8); LYMPHOCYTES PERCENT AUTO 5.1 % (24.0-44.0); MEAN CORPUSCULAR HEMOGLOBIN 30.1 pg (28.0-32.0); MEAN CORPUSCULAR HGB CONC 32.8 g/dl (32.0-36.0); MEAN CORPUSCULAR VOLUME 91.9 fl (83.0-99.0); MEAN PLATELET VOLUME 8.7 fl (9.4-12.4); MONOCYTES ABSOLUTE AUTO 2.5 K/mm3 (0.0-0.8); MONOCYTES PERCENT AUTO 10.9 % (0.0-8.0); NEUTROPHILS ABSOLUTE AUTO 18.8 K/mm3 (1.8-7.7); NEUTROPHILS PERCENT AUTO 82.7 % (41.0-71.0); PLATELET COUNT,PLT 178 K/mm3 (150-400); RED BLOOD CELL COUNT 4.08 M/mm3 (4.52-5.90); WHITE BLOOD CELL COUNT,WBC 22.78 K/mm3 (3.9-11.3)
[2024-01-14] MEDS ORDERED: Labetalol 100 MG/20 ML MDV IVPUSH PRN (08:49)
[2024-01-14] MEDS ORDERED: hydrALAZINE 20 MG/ML SDV IVPUSH PRN (08:49)
[2024-01-14 09:01] LABS: SLIDE REVIEW ABNORMAL SMEAR
[2024-01-14 09:18] LABS: BILIRUBIN TOTAL 1.1 mg/dL (0.2-1.0); BUN/CREATININE RATIO 18.2 (14-18); CALCIUM 8.6 mg/dL (8.5-10.1); CREATININE 1.1 mg/dL (0.7-1.3); EST CRCL DRUG DOSING (CG) 43.4 mL/min; MAGNESIUM 1.6 mg/dL (1.8-2.4); PHOSPHORUS 2.8 mg/dL (2.6-4.7); PROTEIN TOTAL,TP 6.1 g/dl (6.4-8.2)
[2024-01-14 09:26] LABS: TSH 0.53 uIU/mL (0.358-3.74)
[2024-01-14] MEDS: Iopamidol 612 MG/ML 100 ML Bottle IVPUSH ONE (09:27)
[2024-01-14] MEDS: Albuterol/Ipratropium 3.0-0.5 MG/3 ML Neb Soln ONE (11:50)
[2024-01-14] MEDS: Magnesium Sulfate/Water Premix 4 GM in Premix Bag 1 BAG IV ONE (13:51)
[2024-01-14] MEDS ORDERED: Ondansetron 4 MG/2 ML SDV IV PRN (15:16)
[2024-01-14] MEDS ORDERED: Acetaminophen 325 MG Tab PO PRN (15:16)
[2024-01-14] MEDS ORDERED: Sennosides/Docusate Sodium 50-8.6 MG Tab PO PRN (15:16)
[2024-01-14] MEDS ORDERED: Melatonin 3 MG Tab PO PRN (15:16)
[2024-01-14] MEDS: Furosemide 40 MG/4 ML VIAL IVPUSH ONE (16:00)
[2024-01-14] MEDS: Enoxaparin 40 MG/0.4 ML Syringe SUBCUT SCH (16:56)
[2024-01-14] MEDS: cefTRIAXone 1 GM in Sodium Chloride 0.9% 100 ML IV SCH (20:57)
[2024-01-15] MEDS: oxyCODONE 5 MG Tab PO PRN (00:49)
[2024-01-15 05:45] LABS: BASOPHILS PERCENT AUTO 0.2 % (0.0-1.0); EOSINOPHILS ABSOLUTE AUTO 0.1 K/mm3 (0.0-0.4); EOSINOPHILS PERCENT AUTO 0.4 % (0.0-6.0); HEMOGLOBIN 13.2 gm/dl (14.0-18.0); IMMATURE GRAN ABSOLUTE AUTO 0.26 K/mm3 (0.00-0.05); IMMATURE GRAN PERCENT AUTO 1.3 % (0.0-0.4); LYMPHOCYTES ABSOLUTE AUTO 0.9 K/mm3 (1.0-4.8); LYMPHOCYTES PERCENT AUTO 4.5 % (24.0-44.0); MEAN CORPUSCULAR HEMOGLOBIN 30.8 pg (28.0-32.0); MEAN CORPUSCULAR VOLUME 93.2 fl (83.0-99.0); MEAN PLATELET VOLUME 8.9 fl (9.4-12.4); MONOCYTES ABSOLUTE AUTO 1.9 K/mm3 (0.0-0.8); MONOCYTES PERCENT AUTO 9.4 % (0.0-8.0); NEUTROPHILS ABSOLUTE AUTO 16.5 K/mm3 (1.8-7.7); NEUTROPHILS PERCENT AUTO 84.2 % (41.0-71.0); PLATELET COUNT,PLT 174 K/mm3 (150-400); RED BLOOD CELL COUNT 4.29 M/mm3 (4.52-5.90)
[2024-01-15 06:04] LABS: A/G RATIO 0.8 (1-2); ALBUMIN 2.9 g/dl (3.4-5.0); ANION GAP 10.9 (5-15); BILIRUBIN TOTAL 1.1 mg/dL (0.2-1.0); BUN/CREATININE RATIO 19.2 (14-18); CREATININE 1.2 mg/dL (0.7-1.3); EST CRCL DRUG DOSING (CG) 39.78 mL/min; MAGNESIUM 2.2 mg/dL (1.8-2.4); POTASSIUM,K 3.9 mEq/L (3.5-5.1); PROTEIN TOTAL,TP 6.5 g/dl (6.4-8.2)
[2024-01-15 06:06] LABS: SLIDE REVIEW ABNORMAL SMEAR
[2024-01-15] MEDS: Formoterol/Mometasone 200-5 MCG 8.8 GM Inhaler INH SCH (20:29)
[2024-01-15] MEDS: Apixaban 5 MG Tab PO SCH (20:41)
[2024-01-15] MEDS: Gabapentin 600 MG Tab PO SCH (20:41)
[2024-01-15] MEDS: Melatonin 3 MG Tab PO SCH (20:42)
[2024-01-16 04:48] LABS: BASOPHILS PERCENT AUTO 0.2 % (0.0-1.0); EOSINOPHILS ABSOLUTE AUTO 0.2 K/mm3 (0.0-0.4); EOSINOPHILS PERCENT AUTO 1.4 % (0.0-6.0); HEMOGLOBIN 12.4 gm/dl (14.0-18.0); IMMATURE GRAN ABSOLUTE AUTO 0.08 K/mm3 (0.00-0.05); IMMATURE GRAN PERCENT AUTO 0.6 % (0.0-0.4); LYMPHOCYTES ABSOLUTE AUTO 0.7 K/mm3 (1.0-4.8); LYMPHOCYTES PERCENT AUTO 5.8 % (24.0-44.0); MEAN CORPUSCULAR HGB CONC 31.8 g/dl (32.0-36.0); MEAN CORPUSCULAR VOLUME 94.2 fl (83.0-99.0); MEAN PLATELET VOLUME 9.2 fl (9.4-12.4); MONOCYTES ABSOLUTE AUTO 1.1 K/mm3 (0.0-0.8); MONOCYTES PERCENT AUTO 8.9 % (0.0-8.0); NEUTROPHILS ABSOLUTE AUTO 10.3 K/mm3 (1.8-7.7); NEUTROPHILS PERCENT AUTO 83.1 % (41.0-71.0); PLATELET COUNT,PLT 170 K/mm3 (150-400); RED BLOOD CELL COUNT 4.14 M/mm3 (4.52-5.90); WHITE BLOOD CELL COUNT,WBC 12.45 K/mm3 (3.9-11.3)
[2024-01-16 05:15] LABS: A/G RATIO 0.7 (1-2); ALBUMIN 2.5 g/dl (3.4-5.0); BILIRUBIN TOTAL 0.7 mg/dL (0.2-1.0); EST CRCL DRUG DOSING (CG) 47.74 mL/min; PROTEIN TOTAL,TP 6.3 g/dl (6.4-8.2)
[2024-01-16 05:47] LABS: CALCIUM 8.9 mg/dL (8.5-10.1)
[2024-01-16] MEDS: Pantoprazole 40 MG Tab.CR PO SCH (05:52)
[2024-01-16] MEDS: Polyethylene Glycol 3350 Powder 17 GM Packet PO SCH (09:22)
[2024-01-16] MEDS: Tamsulosin 0.4 MG Cap.ER PO SCH (09:22)
[2024-01-16] MEDS: Losartan 100 MG Tab PO SCH (09:22)
[2024-01-16] MEDS: Carvedilol 3.125 MG Tab PO SCH (09:25)
[2024-01-16] MEDS: Ertapenem 1 GM in Sodium Chloride 0.9% 50 ML IV ONE (13:38)
[2024-01-16 13:47] LABS: VITAMIN D 1,25 40.4 pg/mL (19.9-79.3)
[2024-01-16] MEDS: Docusate Sodium 100 MG Cap PO ONE (15:24)
[2024-01-16 17:38] VITALS: BP 147/67; PULSE 84
== END 2024-01-16 18:15 | disposition home or self-care (01) | DRG 314 ==
LOC: JD.ED 21:48 → JD.MS 01-14 05:20 → UNDOADMIN 01-14 05:20
PROVIDERS: ADMIT Student in an Organized Health Care Education/Training Program; ATTEND Student in an Organized Health Care Education/Training Program
DX: N12 Tubulo-interstitial nephritis, not specified as acute or chronic (principal); I42.1 Obstructive hypertrophic cardiomyopathy; J96.21 Acute and chronic respiratory failure with hypoxia; I10 Essential (primary) hypertension; G91.2 (Idiopathic) normal pressure hydrocephalus; N39.0 Urinary tract infection, site not specified; W19.XXXA Unspecified fall, initial encounter; Z66 Do not resuscitate; Z79.82 Long term (current) use of aspirin; B96.20 Unspecified Escherichia coli [E. coli] as the cause of diseases classified elsewhere; I44.30 Unspecified atrioventricular block; I11.0 Hypertensive heart disease with heart failure; Z91.010 Allergy to peanuts; I50.9 Heart failure, unspecified; K21.9 Gastro-esophageal reflux disease without esophagitis; D64.9 Anemia, unspecified; G89.29 Other chronic pain; M54.9 Dorsalgia, unspecified; M19.90 Unspecified osteoarthritis, unspecified site; I25.10 Atherosclerotic heart disease of native coronary artery without angina pectoris; E78.00 Pure hypercholesterolemia, unspecified; K44.9 Diaphragmatic hernia without obstruction or gangrene; E11.9 Type 2 diabetes mellitus without complications; N40.0 Benign prostatic hyperplasia without lower urinary tract symptoms; Z88.8 Allergy status to other drugs, medicaments and biological substances; Z88.0 Allergy status to penicillin; Z91.018 Allergy to other foods; Z88.5 Allergy status to narcotic agent; Z79.01 Long term (current) use of anticoagulants; Z79.899 Other long term (current) drug therapy; Z98.49 Cataract extraction status, unspecified eye; Z98.890 Other specified postprocedural states; Z99.81 Dependence on supplemental oxygen
CPT/HCPCS: 36415; 71045; 80053; 81001; 83605; 83880; 84484; 85025; 85610; 85730; 86140; 87040 ×2; 87086; 87088; 87186; 93005; 96361 ×2; 96365; 96375; 99285; J0696; J2405; J3490 ×2; J7030; 70450; 70450-26; 74178; 74178-26; 82550; 82652; 83735; 84100; 84443; 87641; 93306; 93880; 93880-26; 94640; 94761; 97110-GP; 97161-GP; A9270-GY; J1335; J1650; J1940; J3475; J7620-GY; Q9967

== ENCOUNTER 2025-01-25 01:58 | Emergency (ER) | payer OTHER ==
[2025-01-25 02:38] LABS: BASOPHILS ABSOLUTE AUTO 0.0 K/mm3 (0.0-0.2); BASOPHILS PERCENT AUTO 0.2 % (0.0-1.0); EOSINOPHILS ABSOLUTE AUTO 0.0 K/mm3 (0.0-0.4); EOSINOPHILS PERCENT AUTO 0.4 % (0.0-6.0); IMMATURE GRAN ABSOLUTE AUTO 0.06 K/mm3 (0.00-0.05); IMMATURE GRAN PERCENT AUTO 0.6 % (0.0-0.4); LYMPHOCYTES ABSOLUTE AUTO 0.9 K/mm3 (1.0-4.8); LYMPHOCYTES PERCENT AUTO 8.9 % (24.0-44.0); MEAN PLATELET VOLUME 9.0 fl (9.4-12.4); MONOCYTES ABSOLUTE AUTO 0.5 K/mm3 (0.0-0.8); MONOCYTES PERCENT AUTO 4.9 % (0.0-8.0); NEUTROPHILS ABSOLUTE AUTO 8.9 K/mm3 (1.8-7.7); NEUTROPHILS PERCENT AUTO 85.0 % (41.0-71.0); NRBC ABSOLUTE 0.00 (0.00-0.02); NRBC PERCENT 0.0 % (0.0-0.2); PLATELET COUNT,PLT 237 K/mm3 (150-400); RED BLOOD CELL COUNT 4.13 M/mm3 (4.52-5.90); WHITE BLOOD CELL COUNT,WBC 10.45 K/mm3 (3.9-11.3)
[2025-01-25] MEDS: Ondansetron 4 MG/2 ML SDV IVPUSH ONE (02:41)
[2025-01-25] MEDS: Sodium Chloride 0.9% 10 ML Syringe FLUSH PRN (02:42)
[2025-01-25 03:18] LABS: A/G RATIO 0.8 (1-2); ALANINE AMINOTRANSFERASE,ALT 33.0 U/L (16-63); ASPARTATE AMNIOTRANSFERASE,AST 20.0 U/L (15-37); BILIRUBIN TOTAL 0.6 mg/dL (0.2-1.0); BLOOD UREA NITROGEN,BUN 32.0 mg/dL (7-18); CARBON DIOXIDE,CO2 36.0 mEq/L (21-32); CHLORIDE,CL 102.0 mEq/L (98-107); CREATININE 1.4 mg/dL (0.7-1.3); EST CRCL DRUG DOSING (CG) 36.93 mL/min; ESTIMATED GFR 48.0 mL/min (>60); GLUCOSE RANDOM 258.0 mg/dL (70-99); POTASSIUM,K 5.2 mEq/L (3.5-5.1); PROTEIN TOTAL,TP 6.9 g/dl (6.4-8.2); SODIUM,NA 139.0 mEq/L (136-145); TROPONIN I HIGH SENSITIVITY 8.0 pg/mL (<=76)
[2025-01-25] MEDS: Iopamidol 755 Mg/ML 100 ML Bottle IVPUSH ONE (04:19)
[2025-01-25 05:10] LABS: APPEARANCE,URINE CLEAR (Clear); GLUCOSE,URINE TRACE (Negative); OCCULT BLOOD,URINE NEGATIVE (Negative)
[2025-01-25] MEDS: Levofloxacin/Dextrose 5%-Water 750 MG in Premix Bag 1 BAG IV ONE (07:47)
[2025-01-25] MEDS: metroNIDAZOLE/Normal Saline 500 MG in Premix Bag 1 BAG IV STA (08:55)
[2025-01-25] MEDS: Ondansetron 4 MG/2 ML SDV IVPUSH STA (09:38)
[2025-01-25 09:40] VITALS: BP 142/66; PULSE 85
== END 2025-01-25 10:30 | disposition critical access hospital (66) ==
LOC: JD.ED 01:58 → JD.MS 07:03 → UNDOADMIN 07:03 → JD.ED 10:30
DX: R07.9 Chest pain, unspecified (principal); K80.10 Calculus of gallbladder with chronic cholecystitis without obstruction; I10 Essential (primary) hypertension; I25.10 Atherosclerotic heart disease of native coronary artery without angina pectoris; E11.65 Type 2 diabetes mellitus with hyperglycemia; K21.9 Gastro-esophageal reflux disease without esophagitis; M19.90 Unspecified osteoarthritis, unspecified site; Z79.899 Other long term (current) drug therapy; Z88.0 Allergy status to penicillin; Z88.8 Allergy status to other drugs, medicaments and biological substances; Z91.010 Allergy to peanuts; Z79.01 Long term (current) use of anticoagulants
CPT/HCPCS: 36415; 71275; 74177; 76705; 80053; 81003; 82947; 83690; 83735; 83880; 84484; 85025; 87428; 93005; 96361; 96374; 99285; J1836; J1956; J2405; J7030; Q9967